=== PATIENT | female | born 1975 | race Caucasian/White ===

== ENCOUNTER → 2023-11-03 | Outpatient (CLI) | payer BC, SELFPAY | END | disposition home or self-care (01) | PROVIDERS: PCP Family Medicine; Visit Provider Physician Assistant Surgical | DX: N39.0 Urinary tract infection, site not specified (principal) | CPT/HCPCS: 87086; 87088; 87186 ==

== ENCOUNTER 2024-03-30 02:23 | Emergency (ER) | payer BC, SELFPAY ==
[2024-03-30 02:24] VITALS: BP 189/90; PULSE 145; RESP 31; TEMP 36.6; O2SAT 95; BMI 29.4
--- NOTE | 2024-03-30 02:27 | EX.ED.DYSGE1 ---
HPI History of Present Illness Chief Complaint: Palpitations PFSH PFS Medical History no medical history Home Medications ?Medication ?Instructions ?Recorded ?Last Taken ?Type atenolol 25 mg tablet 25 mg PO DAILY 30 days #30 tabs 03/30/24 Unknown Rx cetirizine 10 mg tablet (24Hour 10 mg PO DAILY PRN allergy symptoms 03/30/24 Unknown History Allergy) Allergy/AdvReac Type Severity Reaction Status Date / Time naproxen Allergy Swelling Verified 03/30/24 02:27 EXAM Physical Exam Const Vital Signs: 03/30/24 02:24 03/30/24 02:29 03/30/24 03:12 Temperature 98 F Temperature Source Oral Pulse Rate 145 H 116 H Respiratory Rate 31 H 20 H Respiratory Effort Normal Blood Pressure 189/90 H 134/67 H Blood Pressure Mean 123 89 Pulse Ox 95 98 Oxygen Delivery Method Nasal Cannula Room Air 03/30/24 04:00 03/30/24 05:00 Temperature Temperature Source Pulse Rate 119 H 96 Respiratory Rate 21 H 24 H Respiratory Effort Blood Pressure 143/82 H 134/81 H Blood Pressure Mean 102 98 Pulse Ox 99 98 Oxygen Delivery Method Room Air Room Air MDM MDM MDM Narrative Medical decision making narrative: HISTORY OF PRESENT ILLNESS: 48-year-old female presents with palpitations. Patient notes elevated heart rate since yesterday evening. She notes elevated heart rate woke her up at 2 AM. She also planes of diaphoresis and sweating. Denies vomiting or diarrhea. Denies decreased p.o. intake. Denies cough fever chills. Denies history of thyroid abnormalities. Denies drug use. The patient denies recent surgery in the last 4 weeks or immobilization in the last 3 days, denies previous diagnosis of DVT or PE, hemoptysis, unilateral leg swelling or malignancy with treatment the last 6 months or palliative. No estrogen use noted. Denies personal family history of abnormal heart rhythms. REVIEW OF SYSTEMS: Pertinent positives: Palpitations Pertinent negatives: Chest pain, shortness of breath, vomiting, diarrhea, abdominal pain, decreased p.o. intake PHYSICAL EXAM: Nursing triage notes reviewed, Vital signs reviewed Constitutional: please see mdm HENT: MMM Eyes: Pupils equal round and reactive to light, Extraocular muscles intact Neck: No stridor, no JVD, full neck ROM Lungs: Clear to auscultation, No wheezing or rales. No increased work of breathing, no conversational dyspnea, no accessory muscle use, no nasal flaring. No respiratory distress noted Heart: Regular rate and rhythm, No murmurs, No rubs and No gallops, 2+ distal pulses (radial, femoral, posterior tibial) in all extremities Abdomen: Soft, there is no tenderness, rigidity, rebound or guarding, no obvious peritoneal signs, no palpable pulsatile abdominal masses, no auscultated abdominal bruit : No CVAT Extremities: No edema Neuro: No new focal neurological deficits, cranial nerves II through XII intact, 5/5 strength in all present extremities. Intact sensation to light touch in all present extremities, 2+ reflexes bilateral patella tendons. Skin: No rash or lesions noted MEDICAL DECISION MAKING: Chief Complaint: Palpitations External records reviewed: Reviewed prior cardiovascular testing Factors affecting care: dermatitis, UTI Social determinants of health: Denies cocaine, methamphetamine or illicit drugs History obtained from others: Consults: none MDM Narrative: The patient was initially hypertensive with a blood pressure 189/90, tachycardic with a heart rate of 145, tachypneic with a respiratory to 31 saturating 95% on room air. No acute distress. Exam without focal pulse deficits, lungs were clear. No stigmata of VTE on initial exam. I considered the following differential diagnosis: Arrhythmia, anemia, electro disturbance, ACS, PE, dehydration, thyroid dysfunction, anxiety I obtained a broad lab and imaging workup to further elucidate the etiology of the patient's complaints. Will treat the patient initially with 500 cc bolus ALL IMAGES (IF OBTAINED) HAVE BEEN PERSONALLY REVIEWED AND INTERPRETED BY MYSELF. EKG with sinus tachycardia rate of 139, left axis deviation, normal intervals, no obvious STEMI CBC without leukocytosis, severe anemia, no thrombocytopenia. D-dimer negative making PE less likely Thyroid studies consistent with hyperthyroidism with low TSH and elevated T3 and T4 I have personally reviewed the patient's chest x-ray. Chest x-ray is unremarkable for pulmonary edema, pneumothorax, pneumonia or focal cardiopulmonary abnormality. High-sensitivity troponin is negative, no evidence of myocardial ischemia x2 On reevaluation the patient's blood pressure. 134/81 and heart rate improved at 96. She felt completely asymptomatic. Given signs of hyperthyroidism will start empiric treatment with atenolol 25 mg orally. This improve the patient's heart rate to a normal range. She felt asymptomatic. Prescribed atenolol and gave PCP follow-up instructions for further thyroid studies. The patient and/or family, caregivers express understanding. The patient and/or family, caregivers agrees with the plan. Shared decision making: I will have a discussion with the patient and or visitors regarding risk/benefits of further testing or admission. They will be made aware of of the risk/benefits inherent in this decision they will be given the opportunity to voice understanding. Total critical care time today provided was at least 0 minutes. This excludes separately billable procedures. Critical care time (if documented) is secondary to the patient having high probability of clinically significant/life threatening deterioration in the patient's condition which required my urgent intervention. Impression: 1. Palpitations 2. Elevated blood pressure 3. Tachycardia 4. Hyperthyroidism Dispo: Discharge home This note was generated with [employer] dictation software. It may contain incorrect words, spelling, and punctuation that were not noted in review of the chart prior to signing. Lab Data Labs: Laboratory Results - last 24 hr 03/30/24 03/30/24 02:47 05:18 WBC 8.6 RBC 4.55 Hgb 13.5 Hct 40.7 MCV 89.5 MCH 29.7 MCHC 33.2 RDW Std Deviation 39.1 RDW Coeff of Cinthya 12.0 Plt Count 389 MPV 8.4 D-Dimer Quant (PE/DVT) 0.29 Sodium 138 Potassium 3.9 Chloride 105 Carbon Dioxide 24.0 Anion Gap 9 BUN 14 Creatinine 0.60 Estim Creat Clear Calc 111.51 Est GFR (MDRD) Af Amer 136 Est GFR (MDRD) Non-Af 112 BUN/Creatinine Ratio 23.1 H Glucose 120 H Calcium 9.2 Troponin I High Sens 5 6 TSH < 0.005 L Free T4 2.26 H Free T3 pg/dL 8.1 H Radiography Diagnostic Testing: Clinical Impression(s) from Imaging Studies Chest X-Ray 03/30/24 02:55 IMPRESSION: Chest with no acute disease. Electronically Signed: Pedrito Lloyd MD at 5:09 EST , Discharge Plan Triage Chief Complaint: Palpitations ED Provider: Bijan De La Paz Dx/Rx/DC Orders Instructions: ED Hyperthyroidism Prescriptions: New atenolol 25 mg tablet 25 mg PO DAILY 30 Days Qty: 30 0RF No Action cetirizine [24Hour Allergy] 10 mg tablet 10 mg PO DAILY PRN (Reason: allergy symptoms) Primary Care Provider: Tammy Hernández Referrals: Tammy Hernández MD [Primary Care Provider] - Activity Restrictions/Additional Instructions: Thank you for trusting us with your care today! Your labs and images were remarkable for evidence of an overactive thyroid. This is called hyperthyroidism. I have prescribed a medicine to help with symptoms. You take this medicine daily. Please return to the emergency department if your symptoms change or worsen. Please follow with your primary care physician for further outpatient evaluation and management and evaluation of your thyroid. Print Language: Citizen Of [place] Disposition Disposition: Home, Self Care
--- NOTE | 2024-03-30 02:33 | EKG12_ITS ---
Test Reason : PALPS Blood Pressure : */* mmHG Vent. Rate : 139 BPM Atrial Rate : 139 BPM P-R Int : 138 ms QRS Dur : 82 ms QT Int : 292 ms P-R-T Axes : 60 -3 41 degrees QTcB Int : 444 ms Sinus tachycardia Nonspecific ST and T wave abnormality Abnormal ECG Confirmed by Valente Dangelo ([id number]), department editor SHANE GARNER ([id number]) on 04/01/2024 11:33:50 AM Referred By: ODALIS Confirmed By: Valente Dangelo
[2024-03-30] MEDS: 0.9% Normal Saline (500mL Bag) 500 ML 999 ML IV ×2 (02:52→03:49)
--- NOTE | 2024-03-30 02:55 | RAD_ITS ---
INDICATION: Tachycardia EXAMINATION/TECHNIQUE: X-RAY - XR Chest 1 View COMPARISON: None. Findings: Single frontal view of the chest. LUNG PARENCHYMA: No acute focal airspace disease or mass lesion. PLEURA: No pleural effusion. No pneumothorax. HEART/GREAT VESSELS: Cardiomediastinal silhouette is unremarkable. BONES: Osseous structures are unremarkable for age. RAD/Chest 1 View (Portable) IMPRESSION: Chest with no acute disease. Electronically Signed: Pedrito Lloyd MD at 5:09 EST ,
[2024-03-30 03:06] LABS: Hematocrit 40.7 % (37-47); Hemoglobin 13.5 g/dL (12.0-15.0); Mean Corp Hgb Conc 33.2 g/dL (32-36); Mean Corpuscular Hgb 29.7 pg (27.0-32.0); Mean Corpuscular Volume 89.5 fL (81-99); Mean Platelet Vol. 8.4 fl (6.2-12.0); Platelet Count 389 K/mm3 (150-450); RBC Distribution Width SD 39.1 fl (35.1-43.9); Red Blood Count 4.55 M/mm3 (4.2-5.4); White Blood Count 8.6 K/mm3 (4.4-11.0)
[2024-03-30 03:12] VITALS: BP 134/67; PULSE 116; RESP 20; O2SAT 98
[2024-03-30 03:12] LABS: D-Dimer Quantitative (DVT/PE) 0.29 FEU/ug/m (0.27-0.49)
[2024-03-30 03:40] LABS: Anion Gap 9 (5-15); BUN 14 mg/dL (7-18); BUN/Creat Ratio 23.1 RATIO (10-20); Calcium,Total 9.2 mg/dL (8.5-10.1); Chloride 105 mmol/L (98-107); EST Glomerular Filtration Rate 112 mL/min (>60); Est Glom Filt Rate - Afr Amer 136 mL/min (>60); Estimated Creatinine Clearance 111.51 ml/min; Free T3 8.1 pg/mL (2.18-3.98); Glucose 120 mg/dL (74-106); Potassium 3.9 mmol/L (3.5-5.1); Sodium Level 138 mmol/L (136-145); T4 Free Direct 2.26 ng/dL (0.76-1.46); Thyroid Stim Hormone (TSH) < 0.005 uIU/mL (0.358-3.740); Troponin-I HS (w/2H Reflex) 5 pg/mL (3.0-54.0)
[2024-03-30 04:00] VITALS: BP 143/82; PULSE 119; RESP 21; O2SAT 99
[2024-03-30] MEDS: Atenolol 25 MG Tablet PO (04:22)
[2024-03-30 04:59] LABS: Reflex Troponin-HS? (from REC) Y
[2024-03-30 05:00] VITALS: BP 134/81; PULSE 96; RESP 24; O2SAT 98
[2024-03-30 05:43] LABS: Troponin-I HS 6 pg/mL (3.0-54.0)
[2024-03-30 05:51] VITALS: BP 130/52; PULSE 87; RESP 20; TEMP 36.6; O2SAT 99
== END 2024-03-30 05:52 | disposition home or self-care (01) ==
PROVIDERS: Emergency Provider Emergency Medicine; PCP Family Medicine; Visit Provider Emergency Medicine
DX: R00.2 Palpitations (principal); R03.0 Elevated blood-pressure reading, without diagnosis of hypertension; R00.0 Tachycardia, unspecified; E05.00 Thyrotoxicosis with diffuse goiter without thyrotoxic crisis or storm
CPT/HCPCS: 36415; 71045; 80048; 84439; 84443; 84481; 84484; 85027; 85379; 93005; 96360; 96361; 99284; A4216

== ENCOUNTER → 2024-04-09 | Outpatient (CLI) | payer BC, SELFPAY ==
--- NOTE | 2024-04-09 12:45 | US_ITS ---
STUDY: THYROID ULTRASOUND REASON FOR EXAM: Female, 48 years old. THYROID STORM TECHNIQUE: Ultrasound evaluation of the thyroid was performed with real-time and static jimenez-scale imaging. COMPARISON: None. FINDINGS: RIGHT LOBE: The right lobe of the thyroid gland measures 5.1 x 1.8 x 2.0 cm. There is a heterogeneous echotexture and hypervascular. There is a solid round heterogeneous nodule with calcification measuring 1.79 x 1.40 x 1.23 cm. LEFT LOBE: The left lobe of the thyroid gland measures 4.8 x 1.6 x 1.3 cm. There is a heterogeneous and hypervascular echotexture. There is a heterogeneous ovoid solid nodule in the caudal aspect of the left thyroid lobe measuring 1.13 x 0.64 x 0.92 cm. ISTHMUS: The isthmus measures 0.2 cm. . There is solid lymph node above the right thyroid lobe measuring 1.4 x 0.8 x 0.4 cm. US/Thyroid IMPRESSION: 1. Solid thyroid nodule in the right mid thyroid lobe measuring 1.79 x 1.40 x 1.23 cm. TI-RADS points: 8. TI-RADS category: TR5. This nodule is highly suspicious. Recommend FNA evaluation. 2. Solid heterogeneous nodule in the caudal aspect of the left thyroid lobe. TI-RADS points: 7. TI-RADS category: TR5. This nodule is highly suspicious. Recommend FNA evaluation. Electronically Signed: João Alfred MD at 16:13 EST ,
== END | disposition home or self-care (01) ==
PROVIDERS: PCP Family Medicine; Referring Provider Family Medicine; Visit Provider Family Medicine
DX: E05.91 Thyrotoxicosis, unspecified with thyrotoxic crisis or storm (principal)
CPT/HCPCS: 76536

== ENCOUNTER → 2024-04-16 | Outpatient (CLI) | payer BC, SELFPAY ==
--- NOTE | 2024-04-16 08:01 | NM_ITS ---
CLINICAL: 48-year-old female with history of clinical hyper-thyroidism and thyroid nodularity. I-123 THYROID UPTAKE and SCAN COMPARISON: Thyroid ultrasound report 04/09/2024 FINDINGS: The patient was administered a 324 uCi I-123 capsule by mouth. The 4-hour I-123 radioactive iodine thyroidal uptake was calculated to be 36.6 % (normal 5 to 25 %). The 24-hour I-123 radioactive iodine thyroidal uptake was calculated to be 64.1 % (normal 5 to 40 %). The I-123 thyroid scan demonstrates homogeneous radiopharmaceutical concentration throughout both lobes of a U -shaped thyroid gland. There are no colloidal parenchymal hypofunctioning-cold nodules noted in either lobe of the thyroid gland. NM/Thyroid Image Quant Measure IMPRESSION: 1. ABNORMAL, ELEVATED 4- and 24-hour I-123 radioactive iodine thyroidal uptakes. 2. The I-123 thyroid scan in conjunction with the calculated iodine uptake values is consistent with the presence of diffuse toxic goiter. 3. If not previously obtained correlation with in-vitro thyroid function studies is recommended. Electronically Signed: Joseluis Garcia DO at 12:42 EST ,
== END | disposition home or self-care (01) ==
LOC: NM 08:00
PROVIDERS: PCP Family Medicine; Referring Provider Family Medicine; Visit Provider Family Medicine
DX: E05.91 Thyrotoxicosis, unspecified with thyrotoxic crisis or storm (principal)
CPT/HCPCS: 78014; A9516

== ENCOUNTER → 2024-05-09 | Outpatient (CLI) | payer BC, SELFPAY ==
[2024-05-09 13:08] LABS: Free T3 5.7 pg/mL (2.18-3.98); T4 Free Direct 1.71 ng/dL (0.76-1.46); Thyroid Stim Hormone (TSH) < 0.005 uIU/mL (0.358-3.740)
[2024-05-10 08:10] LABS: Thyroid Peroxidase AB 10 IU/mL (0-34)
== END | disposition home or self-care (01) ==
LOC: BIMLAB 10:00
PROVIDERS: Internal Medicine Endocrinology, Diabetes & Metabolism; PCP Family Medicine; Referring Provider Family Medicine; Visit Provider Family Medicine
DX: E05.00 Thyrotoxicosis with diffuse goiter without thyrotoxic crisis or storm (principal)
CPT/HCPCS: 36415; 84439; 84443; 84481; 86376

== ENCOUNTER → 2024-05-30 | Outpatient (CLI) | payer BC, SELFPAY ==
[2024-05-30 12:53] LABS: Free T3 3.3 pg/mL (2.18-3.98); T4 Free Direct 1.05 ng/dL (0.76-1.46); Thyroid Stim Hormone (TSH) < 0.005 uIU/mL (0.358-3.740)
== END | disposition home or self-care (01) ==
LOC: BIMLAB 09:15
PROVIDERS: PCP Family Medicine; Referring Provider Internal Medicine Endocrinology, Diabetes & Metabolism; Visit Provider Internal Medicine Endocrinology, Diabetes & Metabolism
DX: E05.00 Thyrotoxicosis with diffuse goiter without thyrotoxic crisis or storm (principal)
CPT/HCPCS: 36415; 84439; 84443; 84481

== ENCOUNTER → 2024-07-09 | Outpatient (CLI) | payer BC, SELFPAY ==
[2024-07-09 13:32] LABS: Free T3 2.6 pg/mL (2.18-3.98)
== END | disposition home or self-care (01) ==
LOC: BIMLAB 09:26
PROVIDERS: PCP Family Medicine; Visit Provider Internal Medicine Endocrinology, Diabetes & Metabolism
DX: E05.00 Thyrotoxicosis with diffuse goiter without thyrotoxic crisis or storm (principal)
CPT/HCPCS: 36415; 84439; 84443; 84481

== ENCOUNTER → 2024-08-22 | Outpatient (CLI) | payer BC, SELFPAY ==
[2024-08-22 13:36] LABS: Free T3 3.2 pg/mL (2.18-3.98)
== END | disposition home or self-care (01) ==
LOC: BIMLAB 09:59
PROVIDERS: PCP Family Medicine; Referring Provider Internal Medicine Endocrinology, Diabetes & Metabolism; Visit Provider Internal Medicine Endocrinology, Diabetes & Metabolism
DX: E05.00 Thyrotoxicosis with diffuse goiter without thyrotoxic crisis or storm (principal)
CPT/HCPCS: 36415; 84439; 84443; 84481

== ENCOUNTER → 2024-10-17 | Outpatient (CLI) | payer BC, SELFPAY ==
--- OUTSIDE RECORDS SUMMARY | 2024-10-17 10:27 | XMS RPT_ITS | CCD ---
Author Organization [facility]ini[facility] Care Team Providers Care Envelope Machine Adjuster Name Role Phone EDGAR DE DIOS, DR MONAE Primary Care Physician EDGAR DE DIOS, DR MONAE Primary Care Unavailable BRITTNI DE DIOS, STEVIE Attending Unavailable BRITTNI DE DIOS, STEVIE Attending Unavailable EDGAR DE DIOS, DR MONAE Primary Care Unavailable Edgar DE DIOS, Dr. Tammy Paul Primary Care Provider [phone] Dr. Bijan De La Paz DO Attending Provider Dr. Bijan De La Paz DO Emergency Provider Dr. Tammy Mejia MD Attending Provider Dr. Tammy Mejia MD Referring Provider Dr. Cesar Moss MD Attending Provider [place], Dr. Guerrero Referring Provider Cesar Moss Attending Unavailable Jolliff, Tammy S Primary Care Unavailable Jolliff, Tammy S Referring Unavailable Ajay, Cesar Attending Unavailable Jolliff, Tammy S Primary Care Unavailable Ajay, Cesar Referring Unavailable AjayCesar Attending Unavailable Jolliff, Tammy S Primary Care Unavailable Bijan De La Paz Attending Unavailable Jolliff, Tammy S Primary Care Unavailable Marcelino Mendes Attending Unavailable Jolliff, Tammy S Primary Care Unavailable Jolliff, Tammy S Primary Care Unavailable Jolliff, Tammy S Referring Unavailable Jolliff, Tammy S Attending Unavailable Jolliff, Tammy S Primary Care Unavailable Jolliff, Tammy S Referring Unavailable Jolliff, Tammy S Attending Unavailable Jolliff, Tammy S Primary Care Unavailable Jolliff, Tammy S Referring Unavailable Jolliff, Tammy S Attending Unavailable Ajay, Cesar Referring Unavailable Ajay, Cesar Attending Unavailable Jolliff, Tammy S Primary Care Unavailable Marcelino Mendes Attending Unavailable Jolliff, Tammy S Referring Unavailable Tammy Mejia Primary Care Unavailable Cesar Moss Attending Unavailable Tammy Mejia Primary Care Unavailable Tammy Mejia Referring Unavailable MABEL HALL Attending Unavailable EDGAR DE DIOS, DR MONAE Primary Care Unavailable EDGAR DE DIOS, DR MONAE Primary Care Unavailable STEVIE ELKINS MD Attending Unavailable Allergies Allergy Classification Reported Allergen(s) Allergy Type Date of Onset Reaction(s) Facility (5 sources) Naproxen; Translations: [naproxen] Drug Allergy 5 facial swelling, hives, Swelling [facility] Comment on above: facial swelling, hiv es (1 source) Naproxen Drug Allergy 5 [facility] Repository Medications Current Medications Medication Drug Class(es) Dates Sig (Normalized) Sig (Original) Zyrtec (3 sources) Histamine-1 Receptor Antagonist Start: 09-04-2024 ZyrTEC qDay, 0 Refill(s) Start Date: 09/04/24 Status: Ordered Repeat number: 1 Start: 03-30-2024 take 1 tablet by lotus th once daily as needed Cetirizine (24hour Allergy) 10 mg tablet Active 10 mg PO DAILY as needed for allergy symptoms March 30, 2024 1:00am Claritin (2 sources) Start: 08-08-2023 Claritin qDay, 0 Refill(s) Start Date: 08/08/23 Status: Ordered methIMAzole 10 mg oral tablet (4 sources) Thyroid Hormone Synthesis Inhibitor Start: 08-13-2024 methIMAzole 10 mg or al tablet Dose : 10 mg = 1 tab(s), TAKE 1 TABLET BY MOUTH ONCE DAILY Start Date: 08/13/24 Status: Ordered Repeat number: 1 Start: 07-11-2024 Methimazole 10 mg tablet Active 15 mg PO daily 135 July 11, 2024 10:12am Start: 04-19-2024 End: 07-11-2024 take 2 tablets by mouth once daily Methimazole 10 mg tablet Discontinued 20 mg PO daily 60 April 19, 2024 1:00am July 11, 2024 10:12am Multivitamin preparation (4 sources) Start: 08-08-2023 take 1 tablet by mouth once daily Multivitamin Dose = 1 tab(s), Oral, Daily, 0 Refill(s) Start Date: 08/08/23 Status: Ordered Repeat number: 1 Start: 08-08-2023 take 1 tablet by lotus th once daily Multivitamin Dose = 1 tab(s), Oral, Daily, 0 Refill(s) Start Date: 08/08/23 Status: Ordered PEG-3350 with Electrolytes (Eqv-GoLYTELY) oral powder for reconstitution (2 sources) Start: 09-04-2024 PEG-3350 with Electrolytes (Eqv-GoLYTELY) oral powder for reconstitution See Instructions, Take as directed starting 1 day before colonoscopy. Follow instructions as provided by your GI provider at [place]., # 1 EA, 0 Refill(s), Pharmacy: [id number], 160, cm, 09/04/24 15:02:00 EDT, Height, kg, 09/04/24 15:02:00 EDT, Dosing Weight Start Date: 09/04/24 Status: Ordered Quantity: 1.0 Unit: EA Repeat number: 1 Completed/Discontinued Medications Medication Drug Class(es) Dates Sig (Normalized) Sig (Original) atenolol 25 mg oral tablet (2 sources) beta-Adrenergic Juanito Start: 03-30-2024 End: 07-11-2024 take 1 tablet by mouth once daily Atenolol 25 mg tablet Discontinued 25 mg PO DAILY April 19, 2024 3:16pm July 11, 2024 9:53am nitrofurantoin, macrocrystals 25 mg / nitrofurantoin, monohydrate 75 mg oral capsule (1 source) Nitrofuran Antibacterial Start: 11-03-2023 End: 11-10-2023 take 1 capsule by mouth every twelve hours at mealtime Nitrofurantoin Monohyd/M-Cryst 100 mg capsule Discontinued 1 NMA PO Q12H 14 November 03, 2023 12:00am November 09, 2023 12:00am November 10, 2023 12:06am administer with a meal/food; swallow whole; do not open, crush, dissolve , or chew predniSONE 10 mg oral tablet (1 source) Start: 05-07-2022 End: 05-22-2022 Prednisone 10 mg tablet Discontinued 10 mg PO .COMPLEX 35 15 May 07, 2022 1:00am May 21, 2022 1:00am May 22, 2022 1:04am 10 mg orally; 40mg x5 days, 20mg x5 days, 10mg x5 days Problems Active Problems Problem Classification Problem Date Documented Date Episodic/Chronic Allergic reactions (1 source) Acute dermatitis; Translations: [Dermatitis, unspecified] 05-07-2022 Episodic Essential hypertension (2 sources) Essential (primary) hypertension; Translations: [Essential (primary) hypertension] Onset: 08-08-2023 Chronic Other nutritional; endocrine; and metabolic disorders (2 sources) Body mass index (BMI) 31.0-31.9, adult; Translations: [Body mass index [BMI] 31.0-31.9, adult] Onset: 08-08-2023 Chronic Other screening for suspected conditions (not mental disorders or infectious disease) (5 sources) Encounter for screening mammogram for malignant neoplasm of breast; Translations: [Encounter for other screening for malignant neoplasm of breast] Onset: 08-08-2023 Episodic Thyroid disorders (5 sources) Thyrotoxicosis due to Graves' disease; Translations: [Thyrotoxicosis with diffuse goiter without thyrotoxic crisis or storm] Onset: 05-17-2024 07-11-2024 Chronic Past or Other Problems Problem Classification Problem Date Documented Da te Episodic/Chronic Cardiac dysrhythmias (1 source) Palpitations; Translations: [Palpitations] Onset: 05-06-2024 Episodic Genitourinary symptoms and ill-defined conditions (1 source) Dysuria; Translations: [Dysuria] Onset: 11-03-2023 Episodic Urinary tract infections (1 source) Urinary tract infection, site not specified; Translations: [Urinary tract infection, site not specified] Onset: 11-15-2023 Episodic Results Test Name Value Interpretation Reference Range Facility MA MAMMOGRAM SCREENING BILAT ERAL W/TOMOon 09-10-2024 MA MAMMOGRAM SCREENING BILATERAL W/JERAMY ORIGINAL FROM: [facility] [address] [place], [place] [address] PROCEDURE FOR: JAVAD OLEARY [address] [place] [address] Home: PID#: [id number] Exam#: [id number] : 1975 Age: 48 TO: STEVIE ELKINS MD [address] [facility] [address] [place], [place] [address] Fax: NO FAX EXAMINATION: SCREENING DIGITAL BILATERAL MAMMOGRAM WITH TOMOSYNTHESIS, 09/05/2024 7:19 am TECHNIQUE: Screening mammography of the bilateral breasts was performed with tomosynthesis. 2D standard and 3D tomosynthesis combination imaging performed through both breasts in the MLO and CC projection. Computer aided detection was utilized in the interpretation of this exam. COMPARISON: August 22, 2023, January 29, 2018 HISTORY: Breast cancer screening. FINDINGS: BREAST DENSITY: The breasts are heterogeneously dense, which may obscure small masses. There is no suspicious mass, architectural distortion or microcalcification. Fibroglandular pattern is stable. IMPRESSION: No mammographic evidence of malignancy. Continued screening with annual mammograms is recommended. Rashmi zick risk calculations, generated with the history provided, report this patient's 10 year risk and lifetime risk for developing breast cancer at 2.6% and 12%, respectively. Based on this assessment tool, if the patient's calculated lifetime risk is below 20%, then the patient is considered at average risk for developing breast cancer. If the patient's calculated lifetime risk is at or above 20%, then the patient is considered high risk for developing breast cancer and may be a candidate for supplemental breast MRI screening in addition to annual mammographic screening per the [employer]. BIRADS: MAMMOGRAM BI-RADS: 1: Negative RECALL: 1 year screening RECALL TYPE: mammo LETTER SENT: Normal BI-RADS 1 and 2 Interpreted by: Stacia Berry Preliminary Report By: Stacia Berry Electronically signed By Stacia Berry Dictated Date: 09/10/2024 10:39:49 PM Prelim Date: 09/10/2024 10:43:07 PM Sign Date: 09/10/2024 10:43:07 PM Ordering Provider: STEVIE ELKINS Dry Cleaner Apprentice: KODI BLACKWOOD RT(Delia)(M)(CT) letter sent: Normal BI-RADS 1 and 2 Mammogram BI-RADS: 1 Negative Normal [facility] Free T3on 08-22-2024 Free T3 [Mass/Vol] 3.2 pg/mL Normal 2.18-3.98 [facility] Comment on above: Performed By: #### L [id number], [id number], L506.0400 ####[facility] [address] [place], [address] T4 Free Directon 08-22-2024 T4 FREE DIRECT 0.80 ng/dL Normal 0.76-1.46 [facility] Comment on above: Performed By: #### L [id number], [id number], L506.0400 ####[facility] [id number] [place], [address] Thyroid Stim Hormone (TSH)on 08-22-2024 TSH 5.360 uIU/mL High 0.300-4.200 [facility] Comment on above: Performed By: #### L [id number], [id number], L506.0400 ####[facility] [address] [place], [address] Endocrinology Visit Reporton 07-11-2024 Endocrinology Visit Report [facility] [address] [facility] [place], [place] [address] OFFICE VISIT Date of Service: 07/11/24 MR#: [id number] Acct: [id number] Name: JAVAD OLEARY Rep #: [id number] : 1975 Provider: Bob Mcgregor Age/Sex: 48/F Location[place] [facility] [place] Status: Signed Intake Vital Signs 04/19/24 13:23 07/11/24 09:51 Height 5 ft 3 in 5 ft 3 in Weight: 174 lb 185 lb BMI 30.8 32.8 BP 144/66 H 125/83 H Blood Pressure Location Lt brachial Rt brachial Position Sitting Sitting Pulse 116 H 78 Pulse Source Monitor Monitor Pulse Oximetry (%) 97 96 Oxygen Delivery Method room air room air Intake Visit Reasons: 3 M FU Chief Complaint: Thyroid Allergies naproxen Allergy (Verified 07/11/24 09:52) Swelling Medications ???Medication ???Instructions ???Recorded ???Confirmed ???Type cetirizine 10 mg tablet (24Hour 10 mg PO DAILY PRN allergy symptom s 03/30/24 07/11/24 History Allergy) methimazole 10 mg tablet 15 mg (1.5 x 10 mg) PO QDAY #135 0 07/11/24 07/11/24 Rx tabs PFSH Medical History Thyrotoxicosis due to Graves' disease Seasonal allergies Surgical History History of delivery History of cholecystectomy Family History Mother History of mitral valve repair Grandmother Arthritis Social History Smoking Status: Never smoker second hand exposure: No alcohol intake: current alcohol intake frequency: a few times a month substance use type: does not use what type of physical activity do you participate in: walking frequency: 3-4 times per week duration: > 90 minutes/day HPI HPI Chief Complaint: Thyroid Details: JAVAD OLEARY, is a 48 F who presents to the office today for follow up. She was diagnosed with thyrotoxicosis due to Grave's disease in March. She is now feeling well. She is taking 15 mg of methimazole, she is tolerating it well. She stopped her beta juanito and heart rate is controlled. ROS Const Constitutional: No fatigue, weight change or change in appetite Eyes Eyes: No change in vision ENT ENT: No dizziness/vertigo or difficulty swallowing Cardio Cardiology: No chest pain at rest, chest pain with exertion, shortness of breath or palpitations Musc Musculoskeletal: No abnormal gait, joint pain, numbness or tingling Neuro Neurology: No abnormal gait, memory loss, numbness or tingling Psych Psychiatric: No change in appetite, No memory loss and No Thoughts of harming yourself/Others Resp Respiratory: No cough, chest congestion or shortness of breath Gastro GI: No abdominal pain, constipation, diarrhea or difficulty swallowing Genitourinary-Female: No burning urination Skin Skin: No itchy eyes or wounds Endo Endocrine: No fatigue or weight change Aller/Imm Allergy/Immunologic: No itchy eyes Exam Const General: cooperative, healthy appearing, comfortable, no acute distress, well developed and not cushingoid Nutritional Appearance: well nourished Orientation: alert, awake and oriented x3 HENMT Head: normal to inspection Ears: hearing grossly normal bilaterally Nose: external nose normal Mouth: oral mucosae normal Eyes General: appearance normal, both eyes and all related structures Alignment and Position: alignment normal Periorbital: periorbital findings normal Eyelids: eyelids normal Conjunctivae: conjunctivae normal Neck Neck: normal visual inspection Neck mass: No Thyroid: diffusely enlarged Lymphatic: no lymphadenopathy noted Chest Chest palpation inspection: normal inspection of the chest Resp Effort Inspection: normal respiratory effort, able to speak in complete sentences, symmetric chest movement, no audible wheezes and no cough Auscultation: Bilateral: Clear to Auscultation Cardio Rate: regular rate Rhythm: regular rhythm Skin General: no rashes or lesions noted Neuro General: patient alert, patient awake and patient oriented x3 Cranial Nerves: CN's II-XI intact bilaterally Cognition: normal cognition Speech: speech normal Gait: normal gait Motor: muscle tone normal throughout Extrem General: no edema Psych Appearance: grossly normal Mental Status: mental status grossly normal Mood: congruent mood Affect: normal affect Speech and Movement: speech and movement normal Attitude: cooperative Thought Process: normal Thought Content: normal Judgment: judgment good Assessment and Plan Assessment and Plan (1) Thyrotoxicosis due to Graves' disease: Status: Chronic Plan: Reduce methimazole to 15 mg due to TSH of 4 Discussed alternative therapies (more content not included)... Normal [facility] Free T3on 07-09-2024 Free T3 [Mass/Vol] 2.6 pg/mL Normal 2.18-3.98 [facility] Comment on above: Performed By: #### L [id number], L506.0400, L501.88782 ####[facility] [address] [place], [place], [id number] Free [id number] By: Cesar Moss on 07-09-2024 Free Triiodothyronine (T3) pg/dL 2.6 pg/mL 2.18-3.98 [facility] T4 Free Directon 07-09-2024 T4 FREE DIRECT 0.60 ng/dL Low 0.76-1.46 [facility] Comment on above: Performed By: #### L [id number], L506.0400, L501.13893 ####[facility] [address] [place], [place], [id number] T4 freeOrdered By: Cesar Moss on 07-09-2024 Free T4 [Mass/Vol] 0.60 ng/dL Low 0.76-1.46 [facility] TSH DL <= 0.005 mIU/L QnOrde red By: Cesar Moss on 07-09-2024 Thyroid Stimulating Hormone (TSH) 4.290 uIU/mL High 0.300-4.200 [facility] Thyroid Stim Hormone (TSH)on 07-09-2024 TSH 4.290 uIU/mL High 0.300-4.200 [facility] Comment on above: Performed By: #### L [id number], L506.0400, L501.31204 ####[facility] [address] [place], [place], [id number] Direct serum free thyroxine (FT4) measurementOrdered By: Cesar Moss on 05-30-2024 Free T4 [Mass/Vol] 1.05 ng/dL 0.76-1.46 [facility] Free T3on 05-30-2024 Free T3 [Mass/Vol] 3.3 pg/mL Normal 2.18-3.98 [facility] Comment on above: Performed By: #### L [id number], L506.0400, L501.9520 ####[facility] [address] [place], [place], [id number] Free [id number] By: Cesar Moss on 05-30-2024 Free Triiodothyronine (T3) pg/dL 3.3 pg/mL 2.18-3.98 [facility] T4 Free Directon 05-30-2024 T4 FREE DIRECT 1.05 ng/dL Normal 0.76-1.46 [facility] Comment on above: Performed By: #### L 501.90916, L506.0400, L501.9520 ####[facility] [address] [place], [place], [address] TSH QnOrdered By: Cesar Moss on 05-30-2024 Thyroid Stimulating Hormone (TSH) < 0.005 uIU/mL Low 0.358-3.740 [facility] Thyroid Stim Hormone (TSH)on 05-30-2024 TSH Qn m[IU]/L Low 0.358-3.740 [facility] Comment on above: Performed By: #### L 501.64609, L506.0400, L501.4220 ####[facility] [address] [place], [place], [id number] Thyroid Peroxidase ABon 05-01 THYR PEROX AB 10 IU/mL Normal 0-34 [facility] Comment on above: Result Comment: Perf ormed at: [facility] [address] [id number] Turbine Assembler: Shaka Sullivan PhD, Phone: [phone] Performed By: #### L 506.0400, L598.48142, L525.9520, L3754.3461 ####[facility] [address] [facility] [place], [place], [id number] Direct serum free thyroxine (FT4) measurementOrdered By: Cesar Moss on 05-09-2024 Free T4 [Mass/Vol] 1.71 ng/dL High 0.76-1.46 [facility] Free T3on 05-09-2024 Free T3 [Mass/Vol] 5.7 pg/mL High 2.18-3.98 [facility] Comment on above: Performed By: #### L 506.0400, L501.63691, [id number], L3389.6561 ####[facility] [address] [place], [place], [id number] Free [id number] By: Cesar Moss on 05-09-2024 Free Triiodothyronine (T3) pg/dL 5.7 pg/mL High 2.18-3.98 [facility] T4 Free Directon 05-09-2024 T4 FREE DIRECT 1.71 ng/dL High 0.76-1.46 [facility] Comment on above: Performed By: #### L 506.0400, L501.21242, L501.9520, L3300.2240 ####[facility] [address] [place], [place], [address] TPO Ab QnOrdered By: Cesar valencia on 05-09-2024 Thyroid Peroxidase Antibodies 10 IU/mL 0-34 [facility] Comment on above: Performed at: [facility] [address] [place] [id number] Director: Shaka Sullivan PhD, Phone: [phone] TSH QnOrdered By: Cesar Moss on 05-09-2024 Thyroid Stimulating Hormone (TSH) < 0.005 uIU/mL Low 0.358-3.740 [facility] Thyroid Stim Hormone (TSH)on 05-09-2024 TSH Qn m[IU]/L Low 0.358-3.740 [facility] Comment on above: Performed By: #### L 506.0400, L501.50868, L501.9520, L3060.9029 ####[facility] [address] [place], [place], [address] Endocrinology Visit Reporton 04-19-2024 Endocrinology Visit Report [facility] [address] [facility] [place], [place] [address] OFFICE VISIT Date of Service: 04/19/24 MR#: [id number] Acct: [id number] Name: JAVAD OLEARY Rep #: [id number] : 1975 Provider: Bob Mcgregor Age/Sex: 48/F [place] [facility] Status: Signed Intake Vital Signs 03/30/24 02:24 04/19/24 13:23 Height 5 ft 3 in 5 ft 3 in Weight: 174 lb BMI 30.8 BP 144/66 H Blood Pressure Location Lt brachial Position Sitting Pulse 116 H Pulse Source Monitor Pulse Oximetry (%) 97 Oxygen Delivery Method room air Intake Visit Reasons: Hyperthyroid Chief Complaint: Thyroid Beck Operator Required: No Accompanied by: Self Is patient in pain?: No Allergies naproxen Allergy (Verified 04/19/24 13:22) Swelling Medications ???Medication ???Instructions ???Recorded ???Confirmed ???Type cetirizine 10 mg tablet (24Hour 10 mg PO DAILY PRN allergy symptoms 03/30/24 04/19/24 History Allergy) atenolol 25 mg tablet 25 mg PO DAILY 30 days #30 tabs 04/19/24 04/19/24 Rx methimazole 10 mg tablet 20 mg (2 x 10 mg) PO QDAY #60 tabs 04/19/24 04/19/24 Rx PFSH Medical History (Updated 04/19/24 @ 14:[address] Cesar Moss MD) Thyrotoxicosis due to Graves' disease Seasonal allergies Surgical History (Updated 04/19/24 @ 13:19 by Kathya Cortes) History of delivery History of cholecystectomy Family History (Updated 04/19/24 @ 13:22 by Kathya Cortes) Mother History of mitral valve repair Grandmother Arthritis Social History (Updated 04/19/24 @ 13:21 by Kathya Cortes) Smoking Status: Never smoker second hand exposure: No alcohol intake: current alcohol intake frequency: a few times a month substance use type: does not use what type of physical activity do you participate in: walking frequency: 3-4 times per week duration: > 90 minutes/day HPI HPI Chief Complaint: Thyroid Details: JAVAD OLEARY, is a 48 F who presents to the office today for follow up. She noticed heat intolerance about 2 months ago. She has been having racing heart and increased sweating. Lab: TSH < 0.005 T4 2.26 She was started on propranolol and is feeling a bit better. ROS Const Constitutional: Positive for excessive sweating; No fatigue, weakness or weight change Cardio Cardiology: Positive for excessive sweating and palpitations; No chest pain at rest, chest pain with exertion or shortness of breath Musc Musculoskeletal: No numbness Neuro Neurology: No weakness or numbness Skin Skin: No wounds Endo Endocrine: Positive for excessive sweating; No fatigue or weight change Exam Const General: cooperative, healthy appearing, comfortable, no acute distress, well developed and not cushingoid Nutritional Appearance: well nourished Orientation: alert, awake and oriented x3 [facility] Head: normal to inspection Ears: hearing grossly normal bilaterally Nose: external nose normal Mouth: oral mucosae normal Eyes General: appearance normal, both eyes and all related structures Alignment and Position: alignment normal Periorbital: periorbital findings normal Eyelids: eyelids normal Conjunctivae: conjunctivae normal Neck Neck: normal visual inspection Neck mass: No Thyroid: diffusely enlarged Lymphatic: no lymphadenopathy noted Chest Chest palpation inspection: normal inspection of the chest Resp Effort Inspection: normal respiratory effort, able to speak in complete sentences, symmetric chest movement, no audible wheezes and no cough Auscultation: Bilateral: Clear to Auscultation Cardio Rate: tachycardic Rhythm: regular rhythm Pulses: posterior tibial pulses present Skin General: no rashes or lesions noted Neuro General: patient alert, patient awake and patient oriented x3 Cranial Nerves: CN's II-XI intact bilaterally Cognition: normal cognition Speech: speech normal Gait: normal gait Motor: muscle tone normal throughout Extrem General: no edema Psych Appearance: grossly normal Mental Status: mental status grossly normal Mood: congruent mood Affect: normal affect Speech and Movement: speech and movement normal Attitude: cooperative Thought Process: normal Thought Content: normal Judgment: judgment good Assessment and Plan Assessment and Plan (1) Thyrotoxicosis due to Graves' disease: Status: Acute Plan: I counseled her regarding thyroid physiology and function. Discussed treatment options. Methimazole 20 mg for seven days then 10 mg. Recheck labs in 3 weeks. I discussed the possible adverse affects of anti-thyroid drugs including agranulocytosis, desquamating rash, and drug induced hepatitis. I asked the patient to call me immediately for fever, rash or dark colored urine. I gave the patient a written li (more content not included)... Normal [facility] Thyroid Image Quant Measureo n 04-16-2024 Thyroid Image Quant Measure [facility] Imaging Services [address] [place], [place] [address] Thyroid Image Quant Measure MR#: [id number] Acct: [id number] Name: JAVAD OLEARY Rep #: [id number] : 1975 F 48 From: Joseluis Neumann PCP: Dr. Tammy Mejia MD Status: REG CLI Study: Thyroid Image Quant Measure Date of Exam: Exam# [id number] Ordering Dr: Tammy Mejia MD [id number] CLINICAL: 48-year-old female with history of clinical hyper-thyroidism and thyroid nodularity. I-123 THYROID UPTAKE and SCAN COMPARISON: Thyroid ultrasound report 04/09/2024 FINDINGS: The patient was administered a 324 uCi I-123 capsule by mouth. The 4-hour I-123 radioactive iodine thyroidal uptake was calculated to be 36.6 % (normal 5 to 25 %). The 24-hour I-123 radioactive iodine thyroidal uptake was calculated to be 64.1 % (normal 5 to 40 %). The I-123 thyroid scan demonstrates homogeneous radiopharmaceutical concentration throughout both lobes of a U -shaped thyroid gland. There are no colloidal parenchymal hypofunctioning-cold nodules noted in either lobe of the thyroid gland. NM/Thyroid Image Quant Measure IMPRESSION: 1. ABNORMAL, ELEVATED 4- and 24-hour I-123 radioactive iodine thyroidal uptakes. 2. The I-123 thyroid scan in conjunction with the calculated iodine uptake values is consistent with the presence of diffuse toxic goiter. 3. If not previously obtained correlation with in-vitro thyroid function studies is recommended. Electronically Signed: Joseluis Garcia DO at 12:42 EST Reading Location ID and State: [address] [place] [address] Tel , Service support , CC: Dr. Tammy Mejia MD Billposting Supervisor: Signed Normal [facility] Thyroidon 04-09-2024 Thyroid [facility] Imaging Services [address] [place] [address] Thyroid MR#: [id number] Acct: [id number] Name: JAVAD OLEARY Rep #: [id number] : 1975 F 48 From: João Alfred MD PCP: Dr. Tammy Mejia MD Status: REG CLI Study: Thyroid Date of Exam: 04/09/24 Exam# [id number] Ordering Dr: Tammy Mejia MD [id number] STUDY: THYROID ULTRASOUND REASON FOR EXAM: Female, 48 years old. THYROID STORM TECHNIQUE: Ultrasound evaluation of the thyroid was performed with real-time and static jimenez-scale imaging. COMPARISON: None. FINDINGS: RIGHT LOBE: The right lobe of the thyroid gland measures 5.1 x 1.8 x 2.0 cm. There is a heterogeneous echotexture and hypervascular. There is a solid round heterogeneous nodule with calcification measuring 1.79 x 1.40 x 1.23 cm. LEFT LOBE: The left lobe of the thyroid gland measures 4.8 x 1.6 x 1.3 cm. There is a heterogeneous and hypervascular echotexture. There is a heterogeneous ovoid solid nodule in the caudal aspect of the left thyroid lobe measuring 1.13 x 0.64 x 0.92 cm. ISTHMUS: The isthmus measures 0.2 cm. . There is solid lymph node above the right thyroid lobe measuring 1.4 x 0.8 x 0.4 cm. US/Thyroid IMPRESSION: 1. Solid thyroid nodule in the right mid thyroid lobe measuring 1.79 x 1.40 x 1.23 cm. TI-RADS points: 8. TI-RADS category: TR5. This nodule is highly suspicious. Recommend FNA evaluation. 2. Solid heterogeneous nodule in the caudal aspect of the left thyroid lobe. TI-RADS points: 7. TI-RADS category: TR5. This nodule is highly suspicious. Recommend FNA evaluation. Electronically Signed: João Alfred MD at 16:13 EST , CC: Dr. Tammy Mejia MD Billposting Supervisor: Signed Normal [facility] 12 Lead EKGon 03-30-2024 12 Lead EKG [facility] Cardiovascular Services [address] [place] [address] 12 Lead EKG 03/30/24 0233 MR#: [id number] Acct: [id number] Name: JAVAD OLEARY Rep #: [id number] : 1975 48 From: Valente Dangelo MD Attending Dr: Status: DEP ER Ordering Dr: Bijan De La Paz DO Date: 03/30/24 Location: ED Sex: F C Admitted: Test Reason : PALPS Blood Pressure : */* mmHG Vent. Rate : 139 BPM Atrial Rate : 139 BPM P-R Int : 138 ms QRS Dur : 82 ms QT Int : 292 ms P-R-T Axes : 60 -3 41 degrees QTcB Int : 444 ms Sinus tachycardia Nonspecific ST and T wave abnormality Abnormal ECG Confirmed by Valente Dangelo ([id number]), fan mail editor SHANE GARNER ([id number]) on 04/01/2024 11:33:50 AM Referred By: ODALIS Confirmed By: Valente Dangelo 04/01/24 1133 Date Valente Dangelo MD CC: Dr. Tammy Mejia MD; Dr. Bijan De La Paz DO Signed Normal [facility] Basic Metabolic Profile (BMP )on 03-30-2024 BUN/CRE 23.1 RATIO High 10-20 [facility] Comment on above: Order Comment: 1 Y Performed By: #### L 501.02416, L501.9520, L501.5425, L300.8000, L100.0500, L500.2500, L506.0400 #### [facility] Laboratory [address], [place], [address] CA,Total 9.2 mg/dL Normal 8.5-10.1 [facility] Comment on above: Order Comment: 1 Y Performed By: #### L 501.94644, L501.9520, L501.5425, L300.8000, L100.0500, L500.2500, L506.0400 #### [facility] [address] [place], [address] Chloride [Moles/Vol] 105 mmol/L Normal 98-107 [facility] Comment on above: Order Comment: 1 Y Performed By: #### L 501.72864, L501.9520, L501.5425, L300.8000, L100.0500, L500.2500, L506.0400 #### [facility] [address] [place], [address] CO2 [Moles/Vol] 24.0 mmol/L Normal 21.0-32.0 [facility] Comment on above: Order Comment: 1 Y Performed By: #### L 501.66421, L501.9520, L501.5425, L300.8000, L100.0500, L500.2500, L506.0400 #### [facility] [address] [place], [address] Creatinine [Mass/Vol] 0.60 mg/dL Normal 0.55-1.02 [facility] Comment on above: Order Comment: 1 Y Result Comment: The validity of the calculated GFR GFRAA in patients over 70 years has not been determined. Clinical correlation is essential. Performed By: #### L 501.59806, L501.9520, L501.5425, L300.8000, L100.0500, L500.2500, L506.0400 #### [facility] [address] [place], [address] ECRCL 111.51 ml/min Normal [facility] Comment on above: Order Comment: 1 Y Performed By: #### L 501.93003, L501.9520, L501.5425, L300.8000, L100.0500, L500.2500, L506.0400 #### [facility] [address] [place], [address] EST GFR - AA 136 mL/min Normal >60 [facility] Comment on above: Order Comment: 1 Y Result Comment: Afri can Dominican GFR Calc Performed By: #### L 501.53400, L501.9520, L501.5425, L300.8000, L100.0500, L500.2500, L506.0400 #### [facility] [address] [place], [address] GAP 9 Normal 5-15 [facility] Comment on above: Order Comment: 1 Y Performed By: #### L 501.99852, L501.9520, L501.5425, L300.8000, L100.0500, L500.2500, L506.0400 #### [facility] [address] [place], [address] GFR/1.73 sq M.predicted among non-blacks MDRD (S/P/Bld) [Vol rate/Area] 112 mL/min/{1.73_m2} Normal >60 [facility] Comment on above: Order Comment: 1 Y Result Comment: Non- GFR Calc Performed By: #### L 501.45741, L501.9520, L501.5425, L300.8000, L100.0500, L500.2500, L506.0400 #### [facility] [address] [place], [address] Glucose [Mass/Vol] 120 mg/dL High 74-106 [facility] Comment on above: Order Comment: 1 Y Result Comment: Fast ing Glucose result from 100 to 125 mg/dL suggests IMPAIRED HOMEOSTASIS per A.D.A. criteria. Performed By: #### L 501.87635, L501.9520, L501.5425, L300.8000, L100.0500, L500.2500, L506.0400 #### [facility] [address] [place], [address] Potassium [Moles/Vol] 3.9 mmol/L Normal 3.5-5.1 [facility] Comment on above: Order Comment: 1 Y Result Comment: Mode rate Hemolysis, Result may be falsely increased. Performed By: #### L 501.56048, L501.9520, L501.5425, L300.8000, L100.0500, L500.2500, L506.0400 #### [facility] [address] [place], [address] Sodium [Moles/Vol] 138 mmol/L Normal 136-145 [facility] Comment on above: Order Comment: 1 Y Performed By: #### L 501.50241, L501.9520, L501.5425, L300.8000, L100.0500, L500.2500, L506.0400 #### [facility] [address] [place], [address] Urea nitrogen [Mass/Vol] 14 mg/dL Normal 7-18 [facility] Comment on above: Order Comment: 1 Y Performed By: #### L 501.59061, L501.9520, L501.5425, L300.8000, L100.0500, L500.2500, L506.0400 #### [facility] [address] [place], [address] Blood urea nitrogen (BUN)/cr eatinine ratioOrdered By: Bijan De La Paz on 03-30-2024 Urea nitrogen/Creatinine [Mass ratio] 23.1 mg/mg High 10-20 [facility] CBC-Complete Blood Cnt No Di ffon 03-30-2024 Erythrocyte distribution width (RBC) [Ratio] 12.0 % Normal 11.6-14.6 [facility] Comment on above: Performed By: #### L 501.68917, L501.9520, L501.5425, L300.8000, L100.0500, L500.2500, L506.0400 #### [facility] [address], [address] Hematocrit (Bld) [Volume fraction] 40.7 % Normal 37-47 [facility] Comment on above: Performed By: #### L 501.44953, L501.9520, L501.5425, L300.8000, L100.0500, L500.2500, L506.0400 #### [facility] [address] [place], [address] Hemoglobin (Bld) [Mass/Vol] 13.5 g/dL Normal 12.0-15.0 [facility] Comment on above: Performed By: #### L 501.46948, L501.9520, L501.5425, L300.8000, L100.0500, L500.2500, L506.0400 #### [facility] [address] [place], [address] MCH (RBC) [Entitic mass] 29.7 pg Normal 27.0-32.0 [facility] Comment on above: Performed By: #### L 501.92046, L501.9520, L501.5425, L300.8000, L100.0500, L500.2500, L506.0400 #### [facility] [address] [place], [address] MCHC (RBC) [Mass/Vol] 33.2 g/dL Normal 32-36 [facility] Comment on above: Performed By: #### L 501.69111, L501.9520, L501.5425, L300.8000, L100.0500, L500.2500, L506.0400 #### [facility] [address] [place], [address] MCV (RBC) [Entitic vol] 89.5 fL Normal 81-99 [facility] Comment on above: Performed By: #### L 501.19040, L501.9520, L501.5425, L300.8000, L100.0500, L500.2500, L506.0400 #### [facility] [address] [place], [address] Platelet mean volume (Bld) [Entitic vol] 8.4 fL Normal 6.2-12.0 [facility] Comment on above: Performed By: #### L 501.05274, L501.9520, L501.5425, L300.8000, L100.0500, L500.2500, L506.0400 #### [facility] [address] [place], [address] Platelets (Bld) [#/Vol] 389 10*3/uL Normal 150-450 [facility] Comment on above: Performed By: #### L 501.98265, L501.9520, L501.5425, L300.8000, L100.0500, L500.2500, L506.0400 #### [facility] [address] [place], [address] RBC (Bld) [#/Vol] 4.55 10*6/uL Normal 4.2-5.4 [facility] Comment on above: Performed By: #### L 501.37568, L501.9520, L501.5425, L300.8000, L100.0500, L500.2500, L506.0400 #### [facility] [address] [place], [address] RDW SD 39.1 fl Normal 35.1-43.9 [facility] Comment on above: Performed By: #### L 501.83675, L501.9520, L501.5425, L300.8000, L100.0500, L500.2500, L506.0400 #### [facility] [address] [place], [address] WBC (Bld) [#/Vol] 8.6 10*3/uL Normal 4.4-11.0 [facility] Comment on above: Performed By: #### L 501.30475, L501.9520, L501.5425, L300.8000, L100.0500, L500.2500, L506.0400 #### [facility] [address] [place], [address] Carbon dioxide measurementOr dered By: Bijan De La Paz on 03-30-2024 CO2 [Moles/Vol] 24.0 mmol/L 21.0-32.0 [facility] Chest 1 View (Portable)on Chest 1 View (Portable) [facility] Imaging Services [address] [place] [address] Chest 1 View (Portable) MR#: [id number] Acct: [id number] Name: JAVAD OLEARY Rep #: [id number] : 1975 F 48 From: Pedrito Lloyd MD PCP: Dr. Tammy Mejia MD Status: REG ER Study: Chest 1 View (Portable) Date of Exam: 03/30/24 Exam# [id number] Ordering Dr: Bijan De La Paz DO [id number] INDICATION: Tachycardia EXAMINATION/TECHNIQUE: X-RAY - XR Chest 1 View COMPARISON: None. Findings: Single frontal view of the chest. LUNG PARENCHYMA: No acute focal airspace disease or mass lesion. PLEURA: No pleural effusion. No pneumothorax. HEART/GREAT VESSELS: Cardiomediastinal silhouette is unremarkable. BONES: Osseous structures are unremarkable for age. RAD/Chest 1 View (Portable) IMPRESSION: Chest with no acute disease. Electronically Signed: Pedrito Lloyd MD at 5:09 EST , CC: Dr. Tammy Mejia MD; Dr. Bijan De La Paz DO Billposting Supervisor: Signed Normal [facility] Chloride measurementOrdered By: Bijan De La Paz on 03-30-2024 Chloride [Moles/Vol] 105 mmol/L 98-[address] [facility] D-Dimer Quantitative (DVT/PE )on 03-30-2024 D-DIMER QUANT 0.29 FEU/ug/m Normal 0.27-0.49 [facility] Comment on above: Result Comment: NORM AL D-Dimer level (<0.50) indicates no DVT or PE. Performed By: #### L 501.13872, L501.9520, L501.5425, L300.8000, L100.0500, L500.2500, L506.0400 #### [facility] Laboratory [address] [facility], [address] D-dimer measurement for deep venous thrombosisOrdered By: Bijan De La Paz on 03-30-2024 D-Dimer Quantitative (PE/DVT) 0.29 FEU/ug/m 0.27-0.49 [facility] Comment on above: NORMAL D-Dimer level (<0.50) indicates no DVT or PE. Direct serum free thyroxine (FT4) measurementOrdered By: Bijan De La Paz on 03-30-2024 Free T4 [Mass/Vol] 2.26 ng/dL High 0.76-1.46 [facility] Emergency Department Summary on 03-30-2024 Emergency Department Summary [facility] Medical Records Department [address] [place] [address] Emergency Department Summary 03/30/24 MR#: [id number] Acct: [id number] Name: JAVAD OLEARY Rep #: [id number] : 1975 48 From: Bijan De La Paz DO PCP: Dr. Tammy Mejia MD Status:REG ER Location: ED HPI History of Present Illness Chief Complaint: Palpitations PFSH PFSH Medical History no medical history Home Medications ???Medication ???Instructions ???Recorded ???Last Taken ???Type atenolol 25 mg tablet 25 mg PO DAILY 30 days #30 tabs 03/30/24 Unknown Rx cetirizine 10 mg tablet (24Hour 10 mg PO DAILY PRN allergy symptoms 03/30/24 Unknown History Allergy) Allergy/AdvReac Type Severity Reaction Status Date / Time naproxen Allergy Swelling Verified 03/30/24 02:27 EXAM Physical Exam Const Vital Signs: 03/30/24 02:24 03/30/24 02:29 03/30/24 03:12 Temperature 98 F Temperature Source Oral Pulse Rate 145 H 116 H Respiratory Rate 31 H 20 H Respiratory Effort Normal Blood Pressure 189/90 H 134/67 H Blood Pressure Mean 123 89 Pulse Ox 95 98 Oxygen Delivery Method Nasal Cannula Room Air 03/30/24 04:00 03/30/24 05:00 Temperature Temperature Source Pulse Rate 119 H 96 Respiratory Rate 21 H 24 H Respiratory Effort Blood Pressure 143/82 H 134/81 H Blood Pressure Mean 102 98 Pulse Ox 99 98 Oxygen Delivery Method Room Air Room Air [facility] Narrative Medical decision making narrative: HISTORY OF PRESENT ILLNESS: 48-year-old female presents with palpitations. Patient notes elevated heart rate since yesterday evening. She notes elevated heart rate woke her up at 2 AM. She also planes of diaphoresis and sweating. Denies vomiting or diarrhea. Denies decreased p.o. intake. Denies cough fever chills. Denies history of thyroid abnormalities. Denies drug use. The patient denies recent surgery in the last 4 weeks or immobilization in the last 3 days, denies previous diagnosis of DVT or PE, hemoptysis, unilateral leg swelling or malignancy with treatment the last 6 months or palliative. No estrogen use noted. Denies personal family history of abnormal heart rhythms. REVIEW OF SYSTEMS: Pertinent positives: Palpitations Pertinent negatives: Chest pain, shortness of breath, vomiting, diarrhea, abdominal pain, decreased p.o. intake PHYSICAL EXAM: Nursing triage notes reviewed, Vital signs reviewed Constitutional: please see [facility] HENT: MMM Eyes: Pupils equal round and reactive to light, Extraocular muscles intact Neck: No stridor, no JVD, full neck ROM Lungs: Clear to auscultation, No wheezing or rales. No increased work of breathing, no conversational dyspnea, no accessory muscle use, no nasal flaring. No respiratory distress noted Heart: Regular rate and rhythm, No murmurs, No rubs and No gallops, 2+ distal pulses (radial, femoral, posterior tibial) in all extremities Abdomen: Soft, there is no tenderness, rigidity, rebound or guarding, no obvious peritoneal signs, no palpable pulsatile abdominal masses, no auscultated abdominal bruit : No CVAT Extremities: No edema Neuro: No new focal neurological deficits, cranial nerves II through XII intact, 5/5 strength in all present extremities. Intact sensation to light touch in all present extremities, 2+ reflexes bilateral patella tendons. Skin: No rash or lesions noted MEDICAL DECISION MAKING: Chief Complaint: Palpitations External records reviewed: Reviewed prior cardiovascular testing Factors affecting care: dermatitis, UTI Social determinants of health: Denies cocaine, methamphetamine or illicit drugs History obtained from others: Consults: none MDM Narrative: The patient was initially hypertensive with a blood pressure 189/90, tachycardic with a heart rate of 145, tachypneic with a respiratory to 31 saturating 95% on room air. No acute distress. Exam without focal pulse deficits, lungs were clear. No stigmata of VTE on initial exam. I considered the following differential diagnosis: Arrhythmia, anemia, electro disturbance, ACS, PE, dehydration, thyroid dysfunction, anxiety I obtained a broad lab and imaging workup to further elucidate the etiology of the patient's complaints. Will treat the patient initially with 500 cc bolus ALL IMAGES (IF OBTAINED) HAVE BEEN PERSONALLY REVIEWED AND INTERPRETED BY MYSELF. EKG with sinus tachycardia rate of 139, left axis deviation, normal intervals, no obvious STEMI CBC without leukocytosis, severe anemia, no thrombocytopenia. D-dimer negative making PE less likely Thyroid studies consistent with hyperthyroidism with low TSH and elevated T3 and T4 I have personally reviewed the patient's chest x-ray. Chest x-ray is unremarkable for pulmonary edema, pneumothorax, (more content not included)... Normal [facility] Erythrocyte distribution wid th ratioOrdered By: Bijan De La Paz on 03-30-2024 Erythrocyte distribution width (RBC) [Ratio] 12.0 % 11.6-14.6 [facility] Erythrocyte distribution wid th standard deviationOrdered By: Bijan De La Paz on 03-30-2024 Erythrocyte distribution width (RBC) [Entitic vol] 39.1 fL 35.1-43.9 [facility] Estimated glomerular filtrat ion rate (GFR) AmericanOrdered By: Bijan De La Paz on 03-30-2024 Estimated GFR (MDRD) Amer 136 mL/min >60 [facility] Comment on above: GFR Calc Estimation of creatinine jey aranceOrdered By: Bijan De La Paz on 03-30-2024 Estimated Creatinine Clearance Calc 111.51 ml/min [facility] Free T3on 03-30-2024 Free T3 [Mass/Vol] 8.1 pg/mL High 2.18-3.98 [facility] Comment on above: Order Comment: 1 Y Performed By: #### L 501.49217, L501.9520, L501.5425, L300.8000, L100.0500, L500.2500, L506.0400 #### [facility] Laboratory [address] [place], [place], [id number] Free T4Aasgtuv By: Bijan grajeda on 03-30-2024 Free Triiodothyronine (T3) pg/dL 8.1 pg/mL High 2.18-3.98 [facility] Glomerular filtration rate ( GFR) estimationOrdered By: Bijan De La Paz on 03-30-2024 Estimated GFR (MDRD) Non-Af Amer 112 mL/min >60 [facility] Comment on above: Non- GFR Calc Glucose measurementOrdered B y: Bijan De La Paz on 03-30-2024 Glucose [Mass/Vol] 120 mg/dL High 74-106 [facility] Comment on above: Fasting Glucose resu lt from 100 to 125 mg/dL suggests IMPAIRED HOMEOSTASIS per A.D.A. criteria. Hematocrit Auto (Bld) [Volum e fraction]Ordered By: Bijan De La Paz on 03-30-2024 Hematocrit (Bld) [Volume fraction] 40.7 % 37-47 [facility] Hemoglobin measurementOrdere d By: Bijan De La Paz on 03-30-2024 Hemoglobin (Bld) [Mass/Vol] 13.5 g/dL 12.0-15.0 [facility] L501.4020on 03-30-2024 TROPONIN-I HS 6 pg/mL Normal 3.0-54.0 [facility] Comment on above: Result Comment: Yohan crawford Note: New Test Units and Gender Specific Reference Ranges. For more information see Policy Stat Procedure [place] High Sensitivity Troponin (TNIH) and attachments. Performed By: #### L 501.4020 #### [facility] [address] [place], [address] L501.5425on 03-30-2024 TROPONIN-I HS 5 pg/mL Normal 3.0-54.0 [facility] Comment on above: Order Comment: 1 Y Result Comment: Yohan crawford Note: New Test Units and Gender Specific Reference Ranges. For more information see Policy Stat Procedure [place] High Sensitivity Troponin (TNIH) and attachments. Performed By: #### L 501.70371, L501.9520, L501.5425, L300.8000, L100.0500, L500.2500, L506.0400 #### [facility] [address] [place], [address] MCV (mean corpuscular volume ) determinationOrdered By: Bijan De La Paz on 03-30-2024 MCV (RBC) [Entitic vol] 89.5 fL 81-99 [facility] Mean corpuscular hemoglobin (MCH) determinationOrdered By: Bijan De La Paz on 03-30-2024 MCH (RBC) [Entitic mass] 29.7 pg 27.0-32.0 [facility] Mean corpuscular hemoglobin concentration (MCHC) determinationOrdered By: Bijan De La Paz on 03-30-2024 MCHC (RBC) [Mass/Vol] 33.2 g/dL 32-36 [facility] Mean platelet volume determi nationOrdered By: Bijan De La Paz on 03-30-2024 Platelet mean volume (Bld) [Entitic vol] 8.4 fL 6.2-12.0 [facility] Platelet countOrdered By: Judd De La Paz on 03-30-2024 Platelets (Bld) [#/Vol] 389 10*3/uL 150-450 [facility] Potassium measurementOrdered By: Bijan De La Paz on 03-30-2024 Potassium [Moles/Vol] 3.9 mmol/L 3.5-5.1 [facility] Comment on above: Moderate Hemolysis, Result may be falsely increased. RBC Auto (Bld) [#/Vol]Ordere d By: Bijan De La Paz on 03-30-2024 RBC (Bld) [#/Vol] 4.55 10*6/uL 4.2-5.4 [facility] Serum anion gap measurementO rdered By: Bijan De La Paz on 03-30-2024 Anion gap [Moles/Vol] 9 mmol/L 5-15 [facility] Serum or plasma calcium edith urement (mass/volume)Ordered By: Bijan De La Paz on 03-30-2024 Calcium [Mass/Vol] 9.2 mg/dL 8.5-10.1 [facility] Serum or plasma creatinine m easurement (mass/volume)Ordered By: Bijan De La Paz on 03-30-2024 Creatinine [Mass/Vol] 0.60 mg/dL 0.55-1.02 [facility] Comment on above: The validity of the calculated GFR & GFRAA in patients over 70 years has not been determined. Clinical correlation is essential. Serum or plasma urea nitroge n measurement (mass/volume)Ordered By: Bijan De La Paz on 03-30-2024 Urea nitrogen [Mass/Vol] 14 mg/dL 7-18 [facility] Sodium levelOrdered By: Quin De La Paz on 03-30-2024 Sodium [Moles/Vol] 138 mmol/L 136-145 [facility] T4 Free Directon 03-30-2024 T4 FREE DIRECT 2.26 ng/dL High 0.76-1.46 [facility] Comment on above: Order Comment: 1Y Performed By: #### L 501.97915, L501.9520, L501.5425, L300.8000, L100.0500, L500.2500, L506.0400 ####[facility] [address] [place], [place], [id number] TSH QnOrdered By: Lux on 03-30-2024 Thyroid Stimulating Hormone (TSH) < 0.005 uIU/mL Low 0.358-3.740 [facility] Thyroid Stim Hormone (TSH)on 03-30-2024 TSH Qn m[IU]/L Low 0.358-3.740 [facility] Comment on above: Order Comment: 1 Y Performed By: #### L 501.81463, L501.9520, L501.5425, L300.8000, L100.0500, L500.2500, L506.0400 #### [facility] [address] [place], [place], [address] Troponin IOrdered By: Bijan De La Paz on 03-30-2024 Troponin I High Sensitivity 6 pg/mL 3.0-54.0 [facility] Comment on above: Please Note: New Nicole t Units and Gender Specific Reference Ranges. For more information see Policy Stat Procedure [place] High Sensitivity Troponin (TNIH) and attachments. White blood cell (WBC) count Ordered By: Bijan De La Paz on 03-30-2024 WBC (Bld) [#/Vol] 8.6 10*3/uL 4.4-11.0 [facility] Urine Cultureon 11-05-2023 URC Presumptive E. coli Empire Count >100,000 Presumptive E. coli: REACTION Ampicillin Islt GERMAN <=2 S Ampicillin+Sulbac Islt GERMAN <=2 S ceFAZolin Islt GERMAN <=4 S Cefepime Islt GERMAN <=0.12 S cefTRIAXone Islt GERMAN <=0.25 S Ciprofloxacin Islt GERMAN <=0.25 S Ertapenem Islt GERMAN <=0.12 S B-Lactamase Extended Susc Islt NEG Gentamicin Islt GERMAN <=1 S Imipenem Islt GERMAN <=0.25 S levoFLOXacin Islt GERMAN <=0.12 S Nitrofurantoin Islt GERMAN <=16 S Pip+Tazo Islt GERMAN <=4 S Tobramycin Islt GERMAN <=1 S TMP SMX Islt GERMAN <=20 S Normal [facility] Comment on above: Performed By: #### M 100.2200 ####[facility] [address] [place], [address] Urgent Care Visit Reporton 0 11-03-2023 Urgent Care Visit Report [facility] [address], [address] [place], [place] [address] OFFICE VISIT Date of Service: 11/03/23 MR#: [id number] Acct: [id number] Name: MAMTAJAVAD Rep #: [id number] : 1975 Provider: HUAN Galdamez Age/Sex: 48/F Location: [facility] Status: Signed Intake Vital Signs 05/07/22 09:59 11/03/23 11:45 Height 5 ft 3 in BP 130/66 H Blood Pressure Location Lt brachial Position Sitting Respiration 15 Pulse 108 H Pulse Source NIBP Temp 100.0 F H Temp Source Temporal Pulse Oximetry (%) 98 Oxygen Delivery Method room air Intake Visit Reasons: Urinary tract infection Chief Complaint: dysuria Beck Operator Required: No Is patient in pain?: No Allergies naproxen Allergy (Verified 11/03/23 11:46) Swelling Is last menstrual period known: No Post menopausal: No Patient : No Have you fallen in the past year?: No Nurse's Note: dysuria and urinary urgency since last noc. denies abd pain/back pain/blood in urine. concern for UTI HPI HPI Chief Complaint: dysuria Details: JAVAD OLEARY, is a 48 F who presents to the office today for complaint of dysuria and increasing urgency/frequency starting last night. Patient denies pelvic or abdominal pain. No fever, chills, sweats. No nausea, vomiting or diarrhea. No loss of bowel or bladder function. No other associated symptoms or alleviating/aggravatin g factors. ROS Const Constitutional: No other (6 system ROS completed with pertinent findings in the HPI otherwise normal.) Exam Const General: cooperative and healthy appearing Resp Effort Inspection: normal respiratory effort Auscultation: Bilateral: Clear to Auscultation Cardio Rate: regular rate Rhythm: regular rhythm GI Auscultation: normal bowel sounds General: No CVA tenderness Psych Appearance: grossly normal Mental Status: mental status grossly normal Results POC Urinalysis Dip (Clinic) Office Urine Color Yellow Last Edit by Lissy Avila on 11/03/23 11:59 Office Urine Clarity Clear Last Edit by Lissy Avila on 11/03/23 11:59 Office Urine Glucose Negative Last Edit by Lissy Avila on 11/03/23 11:59 Office Urine Ketones Negative Last Edit by Lissy Avila on 11/03/23 11:59 Off Ur Spec Lipscomb 1.025 Last Edit by Lissy Avila on 11/03/23 11:59 Office Urine pH 5.0 Last Edit by Lissy Avila on 11/03/23 11:59 Office Urine Bilirubin Negative Last Edit by Lissy Avila on 11/03/23 11:59 Office Urine Urobilinogen Negative Last Edit by Lissy Avila on 11/03/23 11:59 Office Urine Blood Large Last Edit by Lissy Avila on 11/03/23 11:59 Office Urine Blood Hemolyzed NA Last Edit by Lissy Avila on 11/03/23 11:59 Office Urine Protein 2+ Last Edit by Lissy Avila on 11/03/23 11:59 Office Urine Nitrate Positive Last Edit by Lissy Avila on 11/03/23 11:59 Off Ur Leukocytes Positive Last Edit by Lissy Avila on 11/03/23 11:59 Coding Level of Care Code Off vis,est,level 3 Diagnoses Urinary tract infection N39.0 Assessment and Plan Assessment and Plan (1) Urinary tract infection: Plan: Macrobid as prescribed today. Encouraged to get plenty of rest, drink lots of clear liquids, and use Tylenol or Ibuprofen (unless contraindicated) for fever and comfort. Patient also educated on other symptomatic management techniques. To be seen in 7-10 days if no improvement; sooner if worsening of symptoms. Patient advised of potential red flags and when appropriate to report to the ED. Patient verbalized understanding and agreement with all the above. Orders: Orders POC Urinalysis Dip (Clinic) Today R30.0 - Dysuria Culture, Urine Today N39.0 - Urinary tract infection, site not specified Medications: New nitrofurantoin monohyd/m-cryst 100 mg administer with a meal/food; swallow whole; do not open, crush, dissolve , or chew 1 cap PO Q12H 14 caps 0RF 7 days Clinical Quality Measures Falls Risk Screening/Assistive Devices Have you fallen in the past year?: No 11/03/23 1211 Date Marcelino Vivar Signature: Date (if applicable) CC: Normal [facility] MA MAMMOGRAM SCREENING BILAT ERAL W/TOMOon 08-24-2023 MA MAMMOGRAM SCREENING BILATERAL W/JERAMY ORIGINAL FROM: PATRICIA [address] [address] PROCEDURE FOR: JAVAD OLEARY [address] [place] [address] Home: PID#: [id number] Exam#: [id number] : 1975 Age: 47 TO: STEVIE ELKINS MD [address] [place], [place] [address] Fax: NO FAX EXAMINATION: SCREENING DIGITAL BILATERAL MAMMOGRAM WITH TOMOSYNTHESIS, 08/22/2023 9:31 am TECHNIQUE: Screening mammography of the bilateral breasts was performed with tomosynthesis. 2D standard and 3D tomosynthesis combination imaging performed through both breasts in the MLO and CC projection. Computer aided detection was utilized in the interpretation of this exam. COMPARISON: 01/29/2018 HISTORY: Breast cancer screening FINDINGS: BREAST DENSITY: Heterogeneously dense There are no significant masses or calcifications. IMPRESSION: No mammographic evidence of malignancy. Continued screening with annual mammograms is recommended. Rashmi Lozazick risk calculations, generated with the history provided, report this patient's 10 year risk and lifetime risk for developing breast cancer at 2.6% and 12.6%, respectively. Based on this assessment tool, if the patient's calculated lifetime risk is below 20%, then the patient is considered at average risk for developing breast cancer. If the patient's calculated lifetime risk is at or above 20%, then the patient is considered high risk for developing breast cancer and may be a candidate for supplemental breast MRI screening in addition to annual mammographic screening per the [employer]. I have personally reviewed the images of this examination and agree with the resident's findings and interpretation. BIRADS: MAMMOGRAM BI-RADS: 1: Negative RECALL: 1 year screening RECALL TYPE: mammo LETTER SENT: Normal BI-RADS 1 and 2 Interpreted by: Valente Arriola MD Preliminary Report By: Rony Sherman Electronically signed By Valente Arriola MD Dictated Date: 08/24/2023 4:05:34 PM Prelim Date: 08/24/2023 4:44:05 PM Sign Date: 08/24/2023 4:44:05 PM Ordering Provider: STEVIE ELKINS Dry Cleaner Apprentice: TRAE CASTILLO RT(R)(M)(CT) MOBILE SALES ASSISTANT letter sent: Normal BI-RADS 1 and 2 Mammogram BI-RADS: 1 Negative Normal [facility] ([place]) [facility] Reporton 2023 [facility] Report . Pathology Reports Accession: Collected Date/Time: Received Date/Time: Pathologist: [id number] 08/08/2023 09:31 EDT 08/08/2023 18:00 EDT Super[facility] Report SPECIMEN: Specimen Description: Liquid Prep w/ HPV Specimen: Cervical/Endocervical Screening or Diagnostic: Screening RELEVANT HISTORY: LMP: 07/20/23 SPECIMEN ADEQUACY: SATISFACTORY FOR EVALUATION Endocervical/Transform ational zone component present INTERPRETATION/RESULTS : NEGATIVE FOR INTRAEPITHELIAL LESION OR MALIGNANCY HIGH RISK HPV TESTING: Event Code Result HPV Interp See Interp HPVN HPV Interp Text: High Risk HPV Typing: NEGATIVE HPV types 16, 18, 31, 33, 35, 39, 45, 51, 52, 56, 58, 59, 66 and 68 DNA were undetectable or below the pre-set threshold. The jarad High-Risk HPV DNA Test is not intended for use as a screening device for Pap normal women under age 30 and is not intended to substitute for regular Pap screening. The jarad High-Risk HPV DNA Test is designed to augment existing methods for the detection of cervical disease and should be used in conjunction with clinical information derived from other diagnostic and screening tests, physical examinations and full medical history in accordance with appropriate patient management procedures. NOTE: A negative result does not preclude the presence of HPV infection because results depend on adequate specimen collection, absence of inhibitors and sufficient DNA to be detected. As of: 08/14/23 14:58 EDT COMMENT: This Pap Test was successfully processed and evaluated with the assistance of the [employer] Test Imaging System. Pathology Reports Accession: Collected Date/Time: Received Date/Time: Pathologist: [id number] 08/08/2023 09:31 EDT 08/08/2023 18:00 EDT Electronically Signed by Pathology report verified by [facility] Screened by: PRASANNA Electronically signed by Delia JENKINS (ASCP) Sign-Out Date: 08/14/2023 14:59 Performing Lab: [facility], [address] [place] [address] Pathology Dept Disclaimer The Pap test is a screening test for cervical cancer. As evidenced by published data, it is subject to both inherent false negative and false positive results. Your patient's results should be interpreted in context with pertinent clinical history including gynecological examination. Normal [facility] ([place] HPVon 08-10-2023 HPV Interp Normal See Interp HPVN [facility] [place] Comment on above: Order Comment: Order placed by AP_HPV_ORDER rule from [id number] Result Comment: High Risk HPV Typing: NEGATIVE HPV types 16, 18, 31, 33, 35, 39, 45, 51, 52, 56, 58, 59, 66 and 68 DNA were undetectable or below the pre-set threshold. The jarad High-Risk HPV DNA Test is not intended for use as a screening device for Pap normal women under age 30 and is not intended to substitute for regular Pap screening. The jarad High-Risk HPV DNA Test is designed to augment existing methods for the detection of cervical disease and should be used in conjunction with clinical information derived from other diagnostic and screening tests, physical examinations and full medical history in accordance with appropriate patient management procedures. NOTE: A negative result does not preclude the presence of HPV infection because results depend on adequate specimen collection, absence of inhibitors and sufficient DNA to be detected. See Interp HPVN Performed By: #### H PV #### [place] [address] HPV Source Cervix Normal [facility] ([place] Comment on above: Order Comment: Order placed by AP_HPV_ORDER rule from [id number] Performed By: #### H PV #### [place] [address] LABORATORYOrdered By: Hugo Crow on 08-08-2023 HPV Interp High Risk HPV Typing : NEGATIVEHPV types 16, 18, 31, 33, 35, 39, 45, 51, 52, 56, 58, 59, 66 and 68 DNA wereundetectable or below the pre-set threshold.The jarad High-Risk HPV DNA Test is not intended for use as a screening device forPap normal women under age 30 and is not intended to substitute for regular Papscreening.The jarad High-Risk HPV DNA Test is designed to augment existing methods for thedetection of cervical disease and should be used in conjunction with clinicalinformation derived from other diagnostic and screening tests, physical examinationsand full medical history in accordance with appropriate patient managementprocedures.N OTE: A negative result does not preclude the presence of HPV infection because resultsdepend on adequate specimen collection, absence of inhibitors and sufficientDNA to be detected. Normal See Interp HPVN Auto Viro/Sero SS Specimen source Nom (Unsp spec) Cervix (08/08/23 9:31 AM) Normal Auto Viro/Sero SS Vital Signs Date Time Vital Sign Value Performing Clinician Faci lity 07-11-2024 09:51-0400 Body height 160.[address] Tammy Mejia MD Work Phone: [facility] 07-11-2024 09:51-0400 Body mass index (BMI) [Ratio] 32.8 kg/m2 Dr. Tammy Mejia MD Work Phone: [facility] 07-11-2024 09:51-0400 Body weight 83.[address] Tammy Mejia MD Work Phone: [facility] 07-11-2024 09:51-0400 Diastolic blood pressure 83 mm[Hg] Dr. Tammy Mejia MD Work Phone: [facility] 07-11-2024 09:51-0400 Heart rate 78 /min Dr. Tammy Mejia MD Work Phone: [facility] 07-11-2024 09:51-0400 SaO2% (BldA) [Mass fraction] 96 % Dr. Tammy Mejia MD Work Phone: [facility] 07-11-2024 09:51-0400 Systolic blood pressure 125 mm[Hg] Dr. Tammy Mejia MD Work Phone: [facility] 04-19-2024 13:23-0500 Body mass index (BMI) [Ratio] 30.8 kg/m2 Dr. Tammy Mejia MD Work Phone: [facility] 04-19-2024 13:23-0500 Body weight 78.[address] Tammy Mejia MD Work Phone: 8(981)581-284807 [place] [address] 04-19-2024 13:23-0500 Diastolic blood pressure 66 mm[Hg] Dr. Tammy Mejia MD Work Phone: 8(026)372-104407 [place] [address] 04-19-2024 13:23-0500 Heart rate 116 /min Dr. Tammy Mejia MD Work Phone: 7(117)311-884013 [address] 04-19-2024 13:23-0500 SaO2% (BldA) [Mass fraction] 97 % Dr. Tammy Mejia MD Work Phone: 7(031)587-810107 [place] [address] 04-19-2024 13:23-0500 Systolic blood pressure 144 mm[Hg] Dr. Tammy Mejia MD Work Phone: [facility] 03-30-2024 05:51-0500 Body temperature 97.9 [degF] Dr. Tammy Mejia MD Work Phone: 0(202)796-210513 [address] 03-30-2024 05:51-0500 Diastolic blood pressure 52 mm[Hg] Dr. Tammy Mejia MD Work Phone: 5(543)214-710307 [place] [address] 03-30-2024 05:51-0500 Heart rate 87 /min Dr. Tammy Mejia MD Work Phone: 7(263)702-081807 [place] [address] 03-30-2024 05:51-0500 Respiratory rate 20 /min Dr. Tammy Mejia MD Work Phone: 4(111)979-170507 [place] [address] 03-30-2024 05:51-0500 SaO2% (BldA) [Mass fraction] 99 % Dr. Tammy Mejia MD Work Phone: 6(409)699-275907 [place] [address] 03-30-2024 05:51-0500 Systolic blood pressure 130 mm[Hg] Dr. Tammy Mejia MD Work Phone: [facility] 03-30-2024 02:24-0500 Body mass index (BMI) [Ratio] 29.4 kg/m2 Dr. Tammy Mejia MD Work Phone: [facility] 03-30-2024 02:24-0500 Body weight 75.[address] Tammy Mejia MD Work Phone: [facility] Encounters Encounter Date Encounter Type Care Provider Facility Start: 10-02-2024 End: 10-02-2024 ambulatory MABEL HALL Facility:[facility] Start: 10-02-2024 End: 10-02-2024 Minor Procedure MABEL HALL [facility] Start: 09-05-2024 End: 09-05-[address] TAMMY MEJIA MD Facility:[facility] Start: 09-05-2024 End: 09-05-2024 Patient encounter procedure STEVIE ELKINS MD [facility] Start: 08-22-2024 End: 08-22-[address] [facility] Facility:[facility] Start: 07-11-2024 End: 07-11-[address] Cesar Moss MD -[facility] Work Phone: Start: 07-11-2024 End: 07-11-[address] [facility] [place] Start: 07-09-2024 End: 07-09-[address] Tammy Mejia MD Work Phone: [facility] Work Phone: Start: 07-09-2024 End: 07-09-[address] Cesar Moss MD -Laboratory, [place] Start: 07-09-2024 End: 07-09-[address] [facility] Facility:[facility] Start: 05-30-2024 End: 05-30-[address] Cesar Moss MD -Laboratory, [place] Start: 05-30-2024 End: 05-30-2024 ambulatory Cesar Ajay Facility:[facility] Start: 05-09-2024 End: 05-09-[address] Tammy Mejia MD -Laboratory, [place] Start: 05-09-2024 End: 05-09-2024 ambulatory Tammy Mejia Facility:[facility] Start: 04-19-2024 End: 04-19-[address] Cesar Moss MD -[facility] Work Phone: Start: 04-19-2024 End: 04-19-2024 ambulatory Cesar Moss Facility:[facility] Start: 04-16-2024 End: 04-16-[address] Tammy Mejia MD -Nuclear Medicine, [facility] Work Phone: Start: 04-16-2024 End: 04-16-2024 ambulatory Tammy Mejia Facility:[facility] Start: 04-09-2024 End: 04-09-[address] Tammy Mejia MD -Ultrasound, [facility] Work Phone: Start: 04-09-2024 End: 04-09-2024 ambulatory Tammy Mejia Facility:[facility] Start: 03-30-2024 End: 03-30-2024 Emergency department patient visit Dr. Bijan De La Paz DO -Emergency Department Work Phone: Start: 11-03-2023 End: 11-03-2023 ambulatory Marcelino PRESSLEY Facility:[facility] Start: 11-03-2023 End: 11-03-2023 ambulatory Marcelino PRESSLEY Facility:[facility] Start: 08-22-2023 End: 08-23-[address] TAMMY MEJIA MD Facility:[facility] Start: 08-22-2023 End: 08-22-2023 Patient encounter procedure STEVIE ELKINS MD [facility] Start: 08-08-2023 End: 08-13-2023 ambulatory STEVIE ELKINS MD Facility:[facility] Start: 08-08-2023 End: 08-13-2023 Encounter for gynecological examination (general) (routine) without abnormal findings STEVIE ELKINS MD Facility:[facility] Start: 08-08-2023 End: 08-12-2023 Outreach Lab STEVIE ELKINS MD [facility] Procedures Date Procedure Procedure Detail Performing Clinician Start: 04-16-[address] Tammy Mejia MD Work Phone: Start: 04-09-2024 US scan of thyroid Dr. Tammy Mejia MD Work Phone: Start: 03-30-2024 Plain chest X-ray Dr. Wayne Mejia MD Work Phone: Cholecystectomy STEVIE ELKINS MD Ligation of fallopian tube A AMADA ELKINS MD Plan of Treatment Date Care Activity Detail Author Patient Education ED Hyperthyroidism [facility] Work Phone: Patient referral [facility] Work Phone: T4 free measurement [facility] Thyroid stimulating hormone measurement [facility] Triiodothyronine, fr ee measurement [facility] Payers Date Payer Category Payer Private Health Insurance [id number] 2024 Unknown [id number] 2023 Self-pay 2023 Unknown [id number] 2023 Unknown [id number] 1975 Unknown [id number] 2.16.8 40.1.170022.3.579.2. 1975 Unknown [id number] 2.16.8 40.1.715216.3.579.2.7 1975 Unknown [id number] 2.16. [id number] 1975 Unknown [id number] 2.16.8 [id number] Unknown [id number] 2.16.8 40.1.901727.3.579.2.462 Unknown [id number] 2.16.8 40.1.396666.3.579.2.462 Unknown [id number] 2.16.8 40.1.308267.3.579.2.462 Unknown [id number] 2.16.8 40.1.019131.3.579.2.462 Unknown [id number] 2.16.8 40.1.900020.3.579.2.462 Unknown [id number] 2.16.8 40.1.953895.3.579.2.462 Unknown [id number] 2.16.8 40.1.722613.3.579.2.462 Unknown [id number] 2.16.8 40.1.474992.3.579.2.462 Unknown [id number] 2.16.8 40.1.566170.3.579.2.462 Unknown [id number] 2.16.8 40.1.358753.3.579.2.462 Unknown [id number] 2.16.8 [id number] Social History Date Type Detail Facility Start: 08-08-2023 End: 04-19-2024 Tobacco smoking status Never smoked tobacco (finding) [facility] Start: 1975 Sex Assigned At Female A [facility] Start: 06-21-2018 End: 07-17-2024 Sex Female (finding) [facility] Mental Status Date Assessment Result Facility 03-30-2024 Cognitive function Awake;Alert;Appropriat e [facility] Work Phone: Clinical Notes 04-19-2024 to 10-02-2024 Note Date & Type Note Facility 10-02-2024 Evaluation + Plan note Extrac oral from: Title:Clinical Document Author:MABEL HALL ate:10/02/24 BOUNTIFUL ADMISSION HISTORY AN D PHYSICIAL CHIEF COMPLAINT: Colorectal cancer screening HISTORY OF PRESENT ILLNESS: Colorectal cancer screening REVIEW OF SYSTEMS: Constitutional: denies weight loss Cardiovascular:denies chest pain, palpitations Respiratory:denies shortness of breath Gastrointestinal:no abd pain Musculoskeletal: no arthralgias Skin: no rashes ACTIVE PROBLEMS: (1) Graves disease ([id number]) MEDICATIONS: Active Inpt Meds: None Active PRN Meds: None One Time Meds: None Active IV Meds: Sodium Chloride 0.9% intravenous solution 1,000 mL (NS 1,000 mL) Start: 10/02/24 6:43:00 EDT, Rate: 20 mL/hr, 10/02/24 6:43:00 EDT ALLERGIES: (1) naproxen FAMILY HISTORY: SOCIAL HISTORY: PHYSICAL EXAM: VITALS: [id number](kg) 10/02 06:5136.5--[id number]/04 77.3 24 Hr Tmax: 36.5 at 10/02 06:51 36 Hr Tmax: 36.5 at 10/02 06:51 Vital Signs are the last 5 in the past 48 hours. Weights display the last 5 within 7 days. Initial Wt: 10/02 77.3 kg 170 lb Current Wt: 10/02 77.3 kg 170 lb Colorectal cancer screening morning physical exam alert and oriented cardio; regular without murmur pulm; clear abd; soft, nontender LABS: No 36hr Lab Data DIAGNOSTICS: IMPRESSION: Colorectal cancer screening okay PLAN: Colonoscopy as discussed in the office [facility] 06-04-2025 Hospital Discharge instructions Patient Education 10/02/2024 07:50:04 Monitored Anesthesia Care, Care After Monitored Anesthesia Care, Care After These instructions provide you with information about caring for yourself after your procedure. Your health care provider may also give you more specific instructions. Your treatment has been plannedaccording to current medical practices, but problems sometimes occur. Call your health care provider if you have any problems or questions after your procedure. What can I expect after the procedure? After your procedure, you may: Feel sleepy for several hours. Feel clumsy and have poor balance for several hours. Feel forgetful about what happened after the procedure. Have poor judgment for several hours. Feel nauseous or vomit. Have a sore throat if you had a breathing tube during the procedure. Follow these instructions at home: For at least 24 hours after the procedure: Have a responsible adult stay with you. It is important to have someone help care for you until youare awake and alert. Rest as needed. Do not: ?Participate in activities in which you could fall or become injured. ?Drive. ?Use heavy machinery. ?Drink alcohol. ?Take sleeping pills or medicines that cause drowsiness. ?Make important decisions or sign legal documents. ?Take care of children on your own. Eating and drinking Follow the diet that is recommended by your health care provider. If you vomit, drink water, juice, or soup when you can drink without vomiting. Make sure you have little or no nausea before eating solid foods. General instructions Take izmo-xqe-lxtworf and prescription medicines only as told by your health care provider. If you have sleep apnea, surgery and certain medicines can increase your risk for breathing problems. Follow instructions from your health care provider about wearing your sleep device: ?Anytime you are sleeping, including during daytime naps. ?While taking prescription pain medicines, sleeping medicines, or medicines that make you drowsy. If you smoke, do not smoke without supervision. Keep all follow-up visits as told by your health care provider. This is important. Contact a health care provider if: You keep feeling nauseous or you keep vomiting. You feel light-headed. You develop a rash. You have a fever. Get help right away if: You have trouble breathing. Summary For several hours after your procedure, you may feel sleepy and have poor judgment. Have a responsible adult stay with you for at least 24 hours or until you are awake and alert. This information is not intended to replace advice given to you by your health care provider. Make sure you discuss any questions you have with your health care provider. Document Released: 08/07/2016 Document Revised: 07/16/2018 Document Reviewed: 08/07/2016 [employer] Patient Education 2020 [employer]. 10/02/2024 07:50:01 Colonoscopy, Adult, Care After Colonoscopy, Adult, Care After This sheet gives you information about how to care for yourself after your procedure. Your health care provider may also give you more specific instructions. If you have problems or questions, contact your health care provider. What can I expect after the procedure? After the procedure, it is common to have: A small amount of blood in your stool for 24 hours after the procedure. Some gas. Mild abdominal cramping or bloating. Follow these instructions at home: General instructions For the first 24 hours after the procedure: ?Do not drive or use machinery. ?Do not sign important documents. ?Do not drink alcohol. ?Do your regular daily activities at a slower pace than normal. ?Eat soft, idrp-aa-dsozax foods. Take qnqj-ajc-bjeozyt or prescription medicines only as told by your health care provider. Relieving cramping and bloating Try walking around when you have cramps or feel bloated. Apply heat to your abdomen as told by your health care provider. Use a heat source that your healthcare provider recommends, such as a moist heat pack or a heating pad. ?Place a towel between your skin and the heat source. ?Leave the heat on for 20 30 minutes. ?Remove the heat if your skin turns bright red. This is especially important if you are unable to feel pain, heat, or cold. You may have a greater risk of getting burned. Eating and drinking Drink enough fluid to keep your urine pale yellow. Resume your normal diet as instructed by your health care provider. Avoid heavy or fried foods thatare hard to digest. Avoid drinking alcohol for as long as instructed by your health care provider. Contact a health care provider if: You have blood in your stool 2 3 days after the procedure. Get help right away if: You have more than a small spotting of blood in your stool. You pass large blood clots in your stool. Your abdomen is swollen. You have nausea or vomiting. You have a fever. You have increasing abdominal pain that is not relieved with medicine. Summary After the procedure, it is common to have a small amount of blood in your stool. You may also have mild abdominal cramping and bloating. For the first 24 hours after the procedure, do not drive or use machinery, sign important documents, or drink alcohol. Contact your health care provider if you have a lot of blood in your stool, nausea or vomiting, a fever, or increased abdominal pain. This information is not intended to replace advice given to you by your health care provider. Make sure you discuss any questions you have with your health care provider. Document Released: 11/29/2004 Document Revised: 02/07/2018 Document Reviewed: 06/28/2016 [employer] Patient Education 2020 [employer]. Follow Up Care 09/11/2024 10:41:47 With:MABEL HALL DO, Clinical Gastroenterology Address: [address] [place] [address] [place] [address] [phone] When:Within 5 Year(s) With:TAMMY MEJIA MD Address: [address] [place] [id number]- When: Unknown [facility] 06-04-2025 Note Discharge Instructions Thank you for allowing [facility] to assist you with your healthcare needs. The following is importantdischarge information regarding your hospital visit. Your Care Team TAMMY MEJIA MD What to do next Instructions From Your Doctor Repeat colonoscopy 5 years Follow Up Appointments Follow Up with MABEL HALL DO Clinical Gastroenterology When:In 5 years Where:[address] [place] [address] [place] [address] [phone] Follow Up with TAMMY MEJIA MD Where:[address] [place] [id number]- The Following Activity and Diet Have Been Ordered for You Discharge Activity - Ordered -- Driving Restricted, No driving until tomorrow, 10/02/24 6:43:00 EDT Discharge Return to Work, School, or Sports (Discharge Return to status) - Ordered -- May return to: work, 10/02/24 6:43:00 EDT Discharge Diet - Ordered -- Type of Diet: Regular Diet, 10/02/24 6:43:00 EDT Allergies naproxen facial swelling, hives Medications Please ask your primary doctor or pharmacist before taking any other medication not listed, including over the counter drugs, herbal medications, vitamins and or supplements as they may interact withyour home medications. What How Much When Instructions Last Dose Unchanged cetirizine (ZyrTEC) Once a day Unchanged methIMAzole (methIMAzole 10 mg oral tablet) 1 tab(s) TAKE 1 TABLET BY MOUTH ONCE DAILY Unchanged multivitamin (Multivitamin) 1 tab(s) by mouth Every day Unchanged polyethylene glycol 3350 with electrolytes (PEG-3350 with Electrolytes (Eqv-GoLYTELY) oral powder for reconstitution) See instructions Take as directed starting 1 day before colonoscopy. Follow instructions as provided by your GI provider at [facility]. Please take this list to your next doctor s visit. Bring all medications you take, including over the counter medications, herbals and other supplements with you to your doctor s visit. Patients and families are reminded to discard old lists and to update any records with all medication providers or retail pharmacies. Education Materials Monitored Anesthesia Care, Care After These instructions provide you with information about caring for yourself after your procedure. Your health care provider may also give you more specific instructions. Your treatment has been plannedaccording to current medical practices, but problems sometimes occur. Call your health care provider if you have any problems or questions after your procedure. What can I expect after the procedure? After your procedure, you may: Feel sleepy for several hours. Feel clumsy and have poor balance for several hours. Feel forgetful about what happened after the procedure. Have poor judgment for several hours. Feel nauseous or vomit. Have a sore throat if you had a breathing tube during the procedure. Follow these instructions at home: For at least 24 hours after the procedure: Have a responsible adult stay with you. It is important to have someone help care for you until youare awake and alert. Rest as needed. Do not: ? Participate in activities in which you could fall or become injured. ? Drive. ? Use heavy machinery. ? Drink alcohol. ? Take sleeping pills or medicines that cause drowsiness. ? Make important decisions or sign legal documents. ? Take care of children on your own. Eating and drinking Follow the diet that is recommended by your health care provider. If you vomit, drink water, juice, or soup when you can drink without vomiting. Make sure you have little or no nausea before eating solid foods. General instructions Take ksnh-ilk-cckvngz and prescription medicines only as told by your health care provider. If you have sleep apnea, surgery and certain medicines can increase your risk for breathing problems. Follow instructions from your health care provider about wearing your sleep device: ? Anytime you are sleeping, including during daytime naps. ? While taking prescription pain medicines, sleeping medicines, or medicines that make you drowsy. If you smoke, do not smoke without supervision. Keep all follow-up visits as told by your health care provider. This is important. Contact a health care provider if: You keep feeling nauseous or you keep vomiting. You feel light-headed. You develop a rash. You have a fever. Get help right away if: You have trouble breathing. Summary For several hours after your procedure, you may feel sleepy and have poor judgment. Have a responsible adult stay with you for at least 24 hours or until you are awake and alert. This information is not intended to replace advice given to you by your health care provider. Make sure you discuss any questions you have with your health care provider. Document Released: 08/07/2016 Document Revised: 07/16/2018 Document Reviewed: 08/07/2016 [employer] Patient Education 2020 [employer]. Colonoscopy, Adult, Care After This sheet gives you information about how to care for yourself after your procedure. Your health care provider may also give you more specific instructions. If you have problems or questions, contact your health care provider. What can I expect after the procedure? After the procedure, it is common to have: A small amount of blood in your stool for 24 hours after the procedure. Some gas. Mild abdominal cramping or bloating. Follow these instructions at home: General instructions For the first 24 hours after the procedure: ? Do not drive or use machinery. ? Do not sign important documents. ? Do not drink alcohol. ? Do your regular daily activities at a slower pace than normal. ? Eat soft, njkd-vd-vewuog foods. Take zgep-uay-mpzscgi or prescription medicines only as told by your health care provider. Relieving cramping and bloating Try walking around when you have cramps or feel bloated. Apply heat to your abdomen as told by your health care provider. Use a heat source that your healthcare provider recommends, such as a moist heat pack or a heating pad. ? Place a towel between your skin and the heat source. ? Leave the heat on for 20 30 minutes. ? Remove the heat if your skin turns bright red. This is especially important if you are unable to feel pain, heat, or cold. You may have a greater risk of getting burned. Eating and drinking Drink enough fluid to keep your urine pale yellow. Resume your normal diet as instructed by your health care provider. Avoid heavy or fried foods thatare hard to digest. Avoid drinking alcohol for as long as instructed by your health care provider. Contact a health care provider if: You have blood in your stool 2 3 days after the procedure. Get help right away if: You have more than a small spotting of blood in your stool. You pass large blood clots in your stool. Your abdomen is swollen. You have nausea or vomiting. You have a fever. You have increasing abdominal pain that is not relieved with medicine. Summary After the procedure, it is common to have a small amount of blood in your stool. You may also have mild abdominal cramping and bloating. For the first 24 hours after the procedure, do not drive or use machinery, sign important documents, or drink alcohol. Contact your health care provider if you have a lot of blood in your stool, nausea or vomiting, a fever, or increased abdominal pain. This information is not intended to replace advice given to you by your health care provider. Make sure you discuss any questions you have with your health care provider. Document Released: 11/29/2004 Document Revised: 02/07/2018 Document Reviewed: 06/28/2016 [employer] Patient Education 2020 [employer]. Additional Information VACCINATE! IT SAVES LIVES! Members of the community who have not yet received the COVID-19 vaccine and would like to receive it can visit one of [facility] vaccine clinics. There are many vaccine clinic locations within the [facility]. For locations and available times, please visit [email or web address].coronavirus.[place].gov/. It is important to note that some COVID mobile vaccine clinics are held outdoors and may be canceled in rainy or stormy conditions. To learn more about pediatric vaccinations (ages 5-11), we invite you to visit the [facility] webpage. https://www.[facility].org/pages/7493-Ggxja-Tnwltqhrcci-Nawgkiyapq-Lrkza-Tns stions.htmlTo learn more about the COVID-19 vaccine, we invite you to visit the CDC website for a list of frequently asked questions.https://www.cdc.gov/coronavirus/2019-ncov/vaccines/faq.html [employer] Patient Portal Access Instructions: Stay connected with your healthcare team and access your personal medical information anytime with the [employer] Patient Portal. Please follow the directions below to create your [employer] account: 1.Access the email account you provided upon registration to the hospital/physician office.2.Look for an invitation email from [facility].3.Open the email and access the invitation link: AcceptInvitation to [facility].4.Fill in the required rios to create your account. To access your account, visit [email or web address]. Click the blue button labeled Access Patient Portal and then log in with the username and password that you created in the steps above. You will be able to view your test results, lab results, a summary of your visits, upcoming appointments and more. There is also a convenient messaging option where you can send secure messages to your p [employer]. In addition, you will have the ability to download any documents or summaries to your computer and/or send the information securely to a physician. Remember that your healthcare information is confidential, so carefully consider who you will allowto register on the [facility] Patient Portal for access to your information. You can also access the [facility] Patient Portal on the [facility] scarlett. Simply click on Patient Portal and then log into your account. If you would like to receive a full copy of your medical records, please contact the [facility] Medical Records Department by calling [phone], Monday through Monday between 8 a.m. and 4:30 p.m. HOW TO SAFELY DISPOSE OF PRESCRIPTION MEDICATIONS Please use one of the following methods to safely dispose of your unused medications. 1.Use a drug disposal kit: the drug disposal pouch allows you to safely discard your old and unuseddrugs. Ask your nurse to give you one when you are discharged.2.Visit a local take-back location: Many local pharmacies and police departments have programs that collect old and unwanted prescriptiondrugs. Call your local pharmacy or go to http://bit.ly/0K2Yh6b to find one close to you.3.Make use of household items: Use cat litter or old coffee grounds to dispose medications if other options arenot available. Mix your drugs with these household products, seal them in an airtight container andthrow it into the garbage. Call [facility]: [phone] to be sure your drugs can be disposed of in this way. Some medicines may require a different approach.4.Never flush your medications down the toilet. IF YOU HAVE BEEN PRESCRIBED AN OPIOID FOR PAIN If you have been prescribed an opioid (such as hydrocodone, oxycodone or morphine), it is critical to understand the possible side effects and risks of opioid pain medications. Even when taken as directed, opioids can have several side effects including: Tolerance, meaning you might need to take more of a medication for the same pain relief. Nausea, vomiting and/or constipation. Sleepiness, dizziness, dry mouth, confusion, depression or itching. Physical dependence, meaning you have withdrawal symptoms when a medication is stopped, can develop within a few days. KNOW YOUR RESPONSIBILITIES It is important to know exactly how much and how often to take the opioid pain medications you are prescribed. Never take opioids in higher amounts or more often than prescribed. Do not combine opioids with alcohol or other drugs that cause drowsiness, such as benzodiazepines, also known as benzos, including diazepam and alprazolam, muscle relaxants or sleep aids. Never sell or share prescription opioids. This is illegal. Store opioids in a secure place and out of reach of others (including children, family, friends and visitors). The last page of this document has been signed and retained as a CHART COPY. Signatures Patient Education Materials Monitored Anesthesia Care, Care After Colonoscopy, Adult, Care After Medication Leaflets My discharge plan and instructions have been reviewed and explained to me and I,JAVAD OLEARY understand my current condition and have read and understand these discharge instructions. I have received a written copy of the plan/instructions. If I have questions, I am aware that I should contact my doctor. Patient/Singer Songwriter Signature: Date/Time: Relationship to Patient: Witness Name/Signature: Date/Time: [facility]06-04-2025 Note Indication for Surgery Colorectal cancer screening Preoperative Diagnosis Colorectal cancer screening Postoperative Diagnosis 1 mm sigmoid polyp Operation Colonoscopy with snare polypectomy Surgeon(s) Mabel Hall D.O. Anesthesia MAC Estimated Blood Loss None Specimen(s) None Complications None Technique The patient was evaluated in the preoperative area and surgical consent was obtained. She was then brought to endoscopy and monitored on pulse oximetry, cardiac monitoring and placed on supplemental oxygen. She is placed in left lateral decubitus position and a surgical timeout was obtained. Sedation was provided by anesthesia. A digital exam was unremarkable. Colonoscope inserted into the rectumadvanced towards the cecum. Cecal pouch appeared normal. Photographs were obtained. Scope then carefully checked under a 6-minute withdrawal with a good prep. A 1 mm polyp was removed with snare polypectomy. The polyp was not retrieved. Scope then carefully directed into the rectum and retroflexed view of the was normal. The scope was removed. Patient is then transferred to the recovery area in stable condition vital signs. Discharge summary: 1. Final Diagnosis: 1 mm sigmoid polyp 2. Outcome: Patient tolerated procedure well without complication 3. Disposition: Patient was discharged home to follow previous diet and medications 4. Follow-up care: Follow-up with primary care physician as scheduled. Repeat exam in 5 years Digitally Signed by MABEL HALL DO on 10/02/2024 07:47 AM [facility]06-04-2025 Anesthesiology Consult note Patient: JAVAD OLEARY Age: 48 years Sex: Female : 1975 Associated Diagnoses: None Author: KESHAV LI APRN-PAYROLL COORDINATOR Preoperative Information Time of last food or liquid consumption: 10/02/2024 04:00:00 Anesthesia history Patient's history: negative. Family's history: negative. Review of Systems Ear/Nose/Mouth/Throat: Negative. Respiratory: Negative. Cardiovascular: Negative. Gastrointestinal: obese. Genitourinary: Negative. Endocrine: johanny. Musculoskeletal: Negative. Integumentary: Negative. Neurologic: Negative. Health Status Allergies: Allergic Reactions (Selected) Severity Not Documented Naproxen- Facial swelling, hives., Allergies (1) ActiveSeverityReaction naproxenfacial swelling, hives Current medications: (Selected) Inpatient Medications Ordered NS 1,000 mL: 20 mL/hr, Intravenous Prescriptions Prescribed PEG-3350 with Electrolytes (Eqv-GoLYTELY) oral powder for reconstitution: See Instructions, Take asdirected starting 1 day before colonoscopy. Follow instructions as provided by your GI provider at [facility]., 1 EA, 0 Refill(s) Documented Medications Documented Multivitamin: 1 tab(s), Oral, Daily, 0 Refill(s) ZyrTEC: qDay, 0 Refill(s) methIMAzole 10 mg oral tablet: 10 mg, 1 tab(s), TAKE 1 TABLET BY MOUTH ONCE DAILY, Medications (1) Active Scheduled: (0) Continuous: (1) NS (0.9% nacl) 1,000 mL 1,000 mL, Intravenous, 20 mL/hr PRN: (0) Problem list: Active Problems (1) Graves disease Histories Family History: Cardiac pacemaker Mother Atrial fibrillation Mother CHF - Congestive heart failure Grandparent Stroke Grandparent Macular disease Sister Mitral valve disorder Mother Procedure history: Tubal ligation ([id number]). Cholecystectomy ([id number]). Social History: Social & Psychosocial Habits Alcohol 10/02/2024 Use: Current Tobacco 10/02/2024 Tobacco Use: Never (less than 100 in l Physical Examination Vital Signs 10/02/2024 6:51 EDT Temperature Temporal Artery 36.5 DegC Apical Heart Rate 128 bpm >HHI Respiratory Rate 18 br/min Systolic Blood Pressure Non-Invasive 133 mmHg Diastolic Blood Pressure Non-Invasive 83 mmHg Vital Signs (last 24 hrs) Last Charted Temp Njuvtitw64.5 DegC (OCT 02 06:51) Heart Rate ApicalC 128bpm (OCT 02 06:51) VXK695 mmHg (OCT 02 06:51) DBP83 mmHg (OCT 02 06:51) BMI30.2 (OCT 02 06:55) Measurements from flowsheet : Measurements 10/02/2024 6:55 EDT Height 160.0 cm Admission Weight 77.3 kg Weight Method Stated [place] Body Weight 52.38 kg BSA Admission 1.81 Body Mass Index 30.2 kg/m2 Pain assessment: Pain Assessment 10/02/2024 6:51 EDT Primary Pain Intensity 0 Pain Scale Type 0-10 Pain scale . General: Alert and oriented. Airway: Normal temporomandibular joint mobility. Mallampati classification: II (soft palate, fauces, uvula visible). Head: Normocephalic. Dentition Evaluation: Own teeth. Neck: Supple. Respiratory: Lungs are clear to auscultation. Cardiovascular: Normal rate. Heart Sounds: Normal. Gastrointestinal: Soft. Musculoskeletal Normal range of motion. Integumentary: Intact. Neurologic: Alert, Oriented. Review / Management Results review: No qualifying data available , Lab results 10/02/2024 7:25 EDT SN - GCD - Post-operative Diagnosis SCREENING SN - GCD - Case Level OPD Level 3 10/02/2024 7:25 EDT SN - PP - Body Position Lateral Right Side-up Standard Intra-op 10/02/2024 7:24 EDT SN - Proc - Anesthesia Type MAC SN - Proc - EBL 0 mL SN - Proc - Actual Procedure COLONOSCOPY 10/02/2024 7:24 EDT SN - CAt - Case Attendee SN - CAt - Case Attendee SN - CAt - Case Attendee SN - CAt - Case Attendee SN - CAt - Case Attendee SN - CAt - Case Attendee SN - CAt - Case Attendee SN - CAt - Case Attendee SN - CAt - Case Attendee SN - CAt - Case Attendee SN - CAt - Role Performed Primary Surgeon SN - CAt - Role Performed Diamond Selector 1 SN - CAt - Role Performed Diamond Selector 2 SN - CAt - Role Performed Scrub 1 SN - CAt - Role Performed PAYROLL COORDINATOR 10/02/2024 7:03 EDT Sodium Chloride 0.9% Begin Bag 1,000 mL mL 10/02/2024 7:02 EDT Antecubital Right 10/02/2024 22 gauge Peripheral IV Activity: Insert new site Peripheral IV Dressing Condition: Clean, Dry, Intact Peripheral IV Dressing Activity: Applied, Transparent dressing Peripheral IV Line Status/Patency: Flushes easily, Continuous infusion Peripheral IV Site Condition: No complications Peripheral IV Equipment: Extension set Peripheral IV Number of Attempts: 1 10/02/2024 6:59 EDT [place] History and Physical 10/02/2024 6:55 EDT Designated Person #1 We May Share ARNOLD OLEARY [phone] Designated Person #1 Relationship Spouse Privacy Restrictions Requested None Height 160.0 cm Admission Weight 77.3 kg Weight Method Stated [place] Body Weight 52.38 kg BSA Admission 1.81 Body Mass Index 30.2 kg/m2 Status No, per patient Sensory Deficits None Infectious Disease Symptoms Patient states no symptoms Infectious Disease Recent Exposure No Alcohol and Drug Use No Employee of Institutional Living No Health Care Employee No History of Exposure to TB No History of Positive Chest X-Ray for TB No History of Positive TB Skin Test No Homeless No Known Immunosuppression No Recent Immigrant No Resident of Institutional Living No Bloody Sputum No Fatigue No Fever No Loss of Appetite No Night Sweats No Persistent Cough > 3 Weeks No Weight Loss No Barriers to Learning None evident Teaching Method Printed materials Preferred Spoken Language Anguillan Preferred Written Language Anguillan Patient's Current Physicians DR. HALL Discharge To, Anticipated Home independently Prev Test Positive/Diagnosis w/COVID-19 No Current Quarantine/Isolated any Illness No Any Contact with Sick Animals/Birds No Traveled Anywhere in Last 30 Days No No Personal Devices, Patient Valuables None Admission Note-Nursing Procedure/Therapy Intake 10/02/2024 6:51 EDT Temperature Temporal Artery 36.5 DegC Apical Heart Rate 128 bpm >HHI Respiratory Rate 18 br/min Systolic Blood Pressure Non-Invasive 133 mmHg Diastolic Blood Pressure Non-Invasive 83 mmHg Primary Pain Intensity 0 Pain Scale Type 0-10 Pain scale Heart Sounds ICU S1S2 Heart Rhythm Regular Respirations Unlabored Respiratory Pattern Regular Cough None Oxygen Therapy Room air Oxygen Saturation 99 % Abdomen Description Non-distended Skin Description [place] Skin Temperature Warm Skin Integrity Intact Skin Moisture General Dry Neurological Symptoms Patient denies Extremity Movement Equal Characteristics of Speech Clear Level of Consciousness Alert Strength All Extremities Strong Sensation All Extremities Intact Affect/Behavior Appropriate, Calm, Cooperative Orientation Oriented x 4 Berta Motor (2) Moves 4 extremities voluntarily or on command Berta Respirations (2) Spontaneous respiration without support, RR > 10 Berta Blood Pressure (2) BP 20% above or below preanesthetic level Berta Pulse (2) Pulse 20% above or below preanesthetic level Berta Oxygen Saturation (2) 94% or more Berta Level of Consciousness (2) Fully awake Berta III Score 12 Orientation Assessment Oriented x 4 Assistive Device None Positioning Repositions self Standard Safety ID band on, Allergy Band on, Call device within reach, Bed in low position, Wheels locked, Visitor at bedside 10/02/2024 6:47 EDT IV Present Present Allergies Yes Anesthesia Extension Set Applied Yes Senior Treasury Analyst On Yes Colon Prep Results Good Consent Form Signed Yes Patient Dressed In Hospital gown, No undergarments History & Physical Update On Chart Yes History & Physical On Chart Yes Bowel Prep Completed Yes Belongings At Bedside Cell phone, Pants, Purse, Shirt, Shoes, Socks NPO Status Maintained Allergy Band on and Verified Yes Patient ID Band on and Verified Yes Implants Verified Yes Pacemaker/AICD Verified Yes Site Verified by Patient/Family Yes Anesthesia Consent Signed Yes Last Fluid Intake 10/02/2024 4:00 Last Food Intake 09/30/2024 19:00 . Assessment and Plan [place] [employer] (ASA) physical status classification: Class II. Anesthetic Preoperative Plan Anesthetic technique: MAC. Postoperative pain management: Per surgeon. Informed consent: signed by patient. Digitally Signed by KESHAV LI on 10/02/2024 07:31 AM [facility]06-04-2025 Note BOUNTIFUL ADMISSION HISTORY AND PHYSICIAL CHIEF COMPLAINT: Colorectal cancer screening HISTORY OF PRESENT ILLNESS: Colorectal cancer screening REVIEW OF SYSTEMS: Constitutional: denies weight loss Cardiovascular:denies chest pain, palpitations Respiratory:denies shortness of breath Gastrointestinal:no abd pain Musculoskeletal: no arthralgias Skin: no rashes ACTIVE PROBLEMS: (1) Graves disease ([id number]) MEDICATIONS: Active Inpt Meds: None Active PRN Meds: None One Time Meds: None Active IV Meds: Sodium Chloride 0.9% intravenous solution 1,000 mL (NS 1,000 mL) Start: 10/02/24 6:43:00 EDT, Rate:20 mL/hr, 10/02/24 6:43:00 EDT ALLERGIES: (1) naproxen FAMILY HISTORY: SOCIAL HISTORY: PHYSICAL EXAM: VITALS: [id number](kg) 10/02 06:5136.5--[id number]/04 77.3 24 Hr Tmax: 36.5 at 10/02 06:51 36 Hr Tmax: 36.5 at 10/02 06:51 Vital Signs are the last 5 in the past 48 hours. Weights display the last 5 within 7 days. 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 July 11, 2024 9:39am [facility] Work Phone: Evaluation + Plan note Future Appointments Appointment Date:08/22/2023 09:45:00 AM Scheduled Provider: Location:[facility] Appointment Type:[place] Mammogram Screening Bilateral w/ Jeramy Future Scheduled Tests Radiology* MA Mammo Screening Bilateral w/ Jeramy 08/22/23 [facility] Hospital course Narrative No data available for this section [facility] Hospital Discharge instructions No data available for this section [facility] Progress note No data available for this section [facility] Reason for referral (narrative)No reason for referral information [facility]WW[facility] Work Phone: Summary Purpose Family History Relationship Condition Age at Onset Recorded Date/T ron mother History of mitral valve repair Unknown grandmother Arthritis Unknown No Family History Records Found Advance Directives Advance Directive Response Recorded Date/ Time Living Will No March 30 3:27am Do you have a Healthcare Power of Clinical Documentation Improvement Specialist? No March 30, 2024 3:27am Chief Complaint and Reason for Visit Chief Complaint Admit Date palpitations March 30, 2024 2:23am THYROID STORM April 09, 2024 12:41pm THYROID STORM, HYPERTHYROIDISM, NO NODUL E April 16, 2024 7:59am Hyperthyroid April 19, 2024 1:18pm 3 M FU July 11, 2024 9:3 9am Reason for Visit Admit Date Thyrotoxicosis due to Graves' disease De cember 2023 1:18pm Thyrotoxicosis due to Graves' disease [facility] 2024 9:39am Additional Source Comments Patient Care team informatio n (unrecognized section and content) Care Team Personnel Name: TAMMY MEJIA MD Member Role: Primary Care Physician Address: [address] [place] [id number]- [place] Tele[employer]: Care Team Related Persons Name: JOSE OLEARY Team Status: Active Member Role Status Dates Dr. Tammy Mejia MD Family Provider Active Dr. Tammy Mejia MD Primary Care Provider Active Team Status: Inactive Member Role Status Dates Dr. Tammy Mejia MD Primary Care Provider Active Start: March 30, 2024 End: March 30, 2024 Dr. Bijan De La Paz DO Attending Provider Active Start: March 30, 2024 End: March 30, 2024 Dr. Bijan De La Paz DO Emergency Provider Active Start: March 30, 2024 End: March 30, 2024 Team Status: Inactive Member Role Status Dates Dr. Tammy Mejia MD Primary Care Provider Active Start: April 09, 2024 End: April 09, 2024 Dr. Tammy Mejia MD Attending Provider Active Start: April 09, 2024 End: April 09, 2024 Dr. Tammy Mejia MD Referring Provider Active Start: April 09, 2024 End: April 09, 2024 Team Status: Inactive Member Role Status Dates Dr. Tammy Mejia MD Primary Care Provider Active Start: April 16, 2024 End: April 16, 2024 Dr. Tammy Mejia MD Attending Provider Active Start: April 16, 2024 End: April 16, 2024 Dr. Tammy Mejia MD Referring Provider Active Start: April 16, 2024 End: April 16, 2024 Team Status: Inactive Member Role Status Dates Dr. Tammy Mejia MD Primary Care Provider Active Start: April 19, 2024 End: April 19, 2024 Dr. Tammy Mejia MD Referring Provider Active Start: April 19, 2024 End: April 19, 2024 Dr. Cesar Moss MD Attending Provider Active Sta rt: April 19, 2024 End: April 19, 2024 Team Status: Inactive Member Role Status Dates Dr. Tammy Mejia MD Primary Care Provider Active Start: May 09, 2024 End: May 09, 2024 Dr. Tammy Mejia MD Attending Provider Active Start: May 09, 2024 End: May 09, 2024 Dr. Tammy Mejia MD Referring Provider Active Start: May 09, 2024 End: May 09, 2024 Team Status: Inactive Member Role Status Dates Dr. Tammy Mejia MD Primary Care Provider Active Start: May 30, 2024 End: May 30, 2024 Dr. Cesar Moss MD Attending Provider Active Sta rt: May 30, 2024 End: May 30, 2024 Dr. Cesar Moss MD Referring Provider Active Sta rt: May 30, 2024 End: May 30, 2024 Team Status: Inactive Member Role Status Dates Dr. Tammy Mejia MD Primary Care Provider Active Start: July 09, 2024 End: July 09, 2024 Dr. Cesar Moss MD Attending Provider Active Sta rt: July 09, 2024 End: July 09, 2024 Team Status: Inactive Member Role Status Dates Dr. Tammy Mejia MD Primary Care Provider Active Start: July 11, 2024 End: July 11, 2024 Dr. Tammy Mejia MD Referring Provider Active Start: July 11, 2024 End: July 11, 2024 Dr. Cesar Moss MD Attending Provider Active Sta rt: July 11, 2024 End: July 11, 2024 INFORMATION SOURCE (unrecogn ized section and content) DATE CREATED AUTHOR 09/20/2023 [facility] ([place]) DATE CREATED AUTHOR AUTHOR'S ORGANIZ ATION 08/29/2024 [facility] DATE CREATED AUTHOR AUTHOR'S ORGANIZ ATION 10/04/2024 [facility] Goals (unrecognized section and content) Goals may be documented in a n alternate section FOR RECORDS PERTAINING TO PATIENTS WHO ARE OR HAVE BEEN ENROLLED IN A CHEMICAL DEPENDENCY/SUBSTANCEABUSE PROGRAM, SOME INFORMATION MAY BE OMITTED. This clinical summary was aggregated from multiple sources. Caution should be exercised in using it in the provision of clinical care. This summary normalizes information from multiple sources, and as a consequence, information in this document may materially change the coding, format and clinical context of patient data. In addition, data may be omitted in some cases. CLINICAL DECISIONS SHOULD BE BASED ON THE PRIMARY CLINICAL RECORDS. [facility] [facility] provides no warranty or guarantee of the accuracy or completeness of information in this document.
[2024-10-17 13:13] LABS: Free T3 3.1 pg/mL (2.18-3.98)
== END | disposition home or self-care (01) ==
LOC: BIMLAB 09:45
PROVIDERS: PCP Family Medicine; Referring Provider Internal Medicine Endocrinology, Diabetes & Metabolism; Visit Provider Internal Medicine Endocrinology, Diabetes & Metabolism
DX: E05.00 Thyrotoxicosis with diffuse goiter without thyrotoxic crisis or storm (principal)
CPT/HCPCS: 36415; 84439; 84443; 84481

== ENCOUNTER → 2024-12-26 | Outpatient (CLI) | payer BC, SELFPAY ==
[2024-12-26 13:20] LABS: Free T3 3.3 pg/mL (2.18-3.98)
== END | disposition home or self-care (01) ==
LOC: MTLAB 09:49
PROVIDERS: PCP Family Medicine; Referring Provider Internal Medicine Endocrinology, Diabetes & Metabolism; Visit Provider Internal Medicine Endocrinology, Diabetes & Metabolism
DX: E05.00 Thyrotoxicosis with diffuse goiter without thyrotoxic crisis or storm (principal)
CPT/HCPCS: 36415; 84439; 84443; 84481

== ENCOUNTER → 2025-03-04 | Outpatient (CLI) | payer BC, SELFPAY ==
[2025-03-04 13:05] LABS: Free T3 3.1 pg/mL (2.18-3.98)
== END | disposition home or self-care (01) ==
LOC: MTLAB 09:38
PROVIDERS: PCP Family Medicine; Referring Provider Internal Medicine Endocrinology, Diabetes & Metabolism; Visit Provider Internal Medicine Endocrinology, Diabetes & Metabolism
DX: E05.00 Thyrotoxicosis with diffuse goiter without thyrotoxic crisis or storm (principal)
CPT/HCPCS: 36415; 84439; 84443; 84481

== ENCOUNTER → 2025-04-21 | Outpatient (CLI) | payer BC, SELFPAY ==
[2025-04-21 15:54] LABS: Free T3 3.2 pg/mL (2.18-3.98)
--- OUTSIDE RECORDS SUMMARY | 2025-04-21 18:52 | XMS RPT_ITS | CCD ---
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 Tammy Paul Primary Care Provider Dr. Bijan De La Paz DO Attending Provider Dr. Bijan De La Paz DO Emergency Provider Dr. Tammy Mejia MD Attending Provider Dr. Tammy Mejia MD Referring Provider Dr. Cesar Moss MD Attending Provider Dr. Cesar Moss MD Referring Provider Dr. Tammy Mejia MD Primary Care Provider Dr. Cesar Moss MD Attending Provider Dr. Tammy Mejia MD Referring Provider Dr. Cesar Moss MD Referring Provider MABEL HALL DO Attending Cherelle MEJIA MD, DR MONAE Primary Care Cherelle MEJIA MD, DR MONAE Primary Care Cherelle ELKINS MD, STEVIE Attending Dr. Tammy Gatica MD Primary Care Provider Dr. Cesar Moss MD Attending Provider Dr. Cesar Moss MD Referring Provider Dr. Tammy Mejia MD Referring Provider Tammy Mejia Primary Care Unavailable Ajay, Cesar Attending Unavailable Ajay, Cesar Referring Unavailable Jolliff, Tammy S Primary Care Unavailable Ana CristinaBijan Attending Unavailable Jolliff, Tammy S Attending Unavailable Jolliff, Tammy S Referring Unavailable Jolliff, Tammy S Primary Care Unavailable Ana, Jacquelynon Primary Care Unavailable Ajay, Cesar Referring Unavailable Ajay, Cesar Attending Unavailable Jolliff, Tammy S Primary Care Unavailable Ajay, Cesar Referring Unavailable Ajay, Cesar Attending Unavailable Jolliff, Tammy S Referring Unavailable Jolliff, Tammy S Primary Care Unavailable Ajay, Cesar Attending Unavailable Jolliff, Tammy S Referring Unavailable Jolliff, Tammy S Primary Care Unavailable Ajay, Ceasr Attending Unavailable Ajay, Cesar Attending Unavailable Jolliff, Tammy S Referring Unavailable Jolliff, Tammy S Primary Care Unavailable Jolliff, Tammy S Primary Care Unavailable Ajay, Ecsar Referring Unavailable Ajay, Cesar Attending Unavailable Jolliff, Tammy S Primary Care Unavailable Ajay, Cesar Referring Unavailable Ajay, Cesar Attending Unavailable Ajay, Cesar Attending Unavailable Jolliff, Tammy S Primary Care Unavailable Jolliff, Tammy S Primary Care Unavailable Jolliff, Tammy S Attending Unavailable Jolliff, Tammy S Referring Unavailable Jolliff, Tammy S Attending Unavailable Jolliff, Tammy S Primary Care Unavailable Jolliff, Tammy S Referring Unavailable Allergies Allergy Classification Reported Allergen(s) Allergy Type Date of Onset Reaction(s) Facility (8 sources) Naproxen; Translations: [naproxen] Drug Allergy 5 facial swelling, hives, Swelling [facility] Comment on above: facial swelling, hiv es (1 source) Naproxen Drug Allergy 5 [facility] Repository Medications Current Medications Medication Drug Class(es) Dates Sig (Normalized) Sig (Original) Zyrtec (6 sources) Histamine-1 Receptor Antagonist Start: 09-04-2024 ZyrTEC [...] Status: Ordered methIMAzole 10 mg oral tablet (15 sources) Thyroid Hormone Synthesis Inhibitor Start: 12-31-2024 take 0.5 tablet by mouth once daily Methimazole 10 mg tablet Active 10 mg PO .qd, Mon & Fri 1/2 t 90 December 31, 2024 9:06am Start: 08-13-2024 End: 12-31-2024 take 1 tablet by mouth once daily Methimazole 10 mg tablet Discontinued 10 mg PO daily 135 August 22, 2024 3:05pm December 31, 2024 9:07am Start: 07-11-2024 End: 08-22-2024 Methimazole 10 mg tablet Discontinued 15 mg PO daily 135 July 11, 2024 10:12am August 22, 2024 3:05pm Start: 04-19-2024 End: 07-11-2024 take 2 tablets by mouth once daily Methimazole 10 mg tablet Discontinued 20 mg PO daily 60 3 April 19, 2024 1:00am July 11, 2024 [...] as provided by your GI provider at [place] # 1 EA, 0 Refill(s), Pharmacy: [id number], 160, cm, 09/04/24 15:02:00 EDT, Height, kg, 09/04/24 15:02:00 EDT, Dosing Weight Start Date: 09/04/24 Status: Ordered Quantity: 1.0 Unit: EA Repeat number: 1 Completed/Discontinued Medications Medication Drug Class(es) Dates Sig (Normalized) Sig (Original) atenolol 25 mg oral tablet (8 sources) beta-Adrenergic Juanito Start: 03-30-2024 End: 07-11-2024 take 1 tablet by mouth once daily Atenolol 25 mg tablet Discontinued 25 mg PO DAILY April 19, 2024 3:16pm July 11, 2024 9:53am nitrofurantoin, macrocrystals 25 mg / nitrofurantoin, monohydrate 75 mg oral capsule (4 sources) Nitrofuran Antibacterial Start: 11-03-2023 End: 11-10-2023 take 1 capsule by mouth every twelve hours at mealtime Nitrofurantoin Monohyd/M-Cryst 100 mg capsule Discontinued 1 NMA PO Q12H 14 7 0 November 03, 2023 12:00am November 09, 2023 12:00am November 10, 2023 12:06am administer with a meal/food; swallow whole; do not open, crush, dissolve , or chew predniSONE 10 mg oral tablet (4 sources) Start: 05-07-2022 End: 05-22-2022 Prednisone 10 mg tablet Discontinued 10 mg PO .COMPLEX 35 15 0 May 07, 2022 1:00am May 21, 2022 1:00am May 22, 2022 1:04am 10 mg orally; 40mg x5 days, 20mg x5 days, 10mg x5 days Problems Active Problems Problem Classification Problem Date Documented Date Episodic/Chronic Allergic reactions (4 sources) Acute dermatitis; Translations: [Dermatitis, unspecified] 05-07-2022 Episodic Essential hypertension (2 sources) Essential (primary) hypertension; Translations: [Essential (primary) hypertension] Onset: 08-08-2023 Chronic Other nutritional; endocrine; and metabolic disorders (2 sources) Body mass index (BMI) 31.0-31.9, adult; Translations: [Body mass index [BMI] 31.0-31.9, adult] Onset: 08-08-2023 Chronic Thyroid disorders (11 sources) Thyrotoxicosis due to Graves' disease; Translations: [Thyrotoxicosis with diffuse goiter without thyrotoxic crisis or storm] Onset: 05-17-2024 07-11-2024 Chronic Past or Other Problems Problem Classification Problem Date Documented Da te Episodic/Chronic Cardiac dysrhythmias (1 source) Palpitations; Translations: [Palpitations] Onset: 05-06-2024 Episodic Other screening for suspected conditions (not mental disorders or infectious disease) (5 sources) Encounter for screening mammogram for malignant neoplasm of breast; Translations: [Encounter for other screening for malignant neoplasm of breast] Onset: 08-08-2023 Episodic Results Test Name Value Interpretation Reference Range Facility Free T3on 03-04-2025 Free T3 [Mass/Vol] 3.1 pg/mL Normal 2.18-3.98 [facility] Comment on above: Performed By: #### L 501.11506, L501.9520, L506.0400 #### [facility] [address] [place], [address] T4 Free Directon 03-04-2025 T4 FREE DIRECT 1.00 ng/dL Normal 0.76-1.46 [facility] Comment on above: Performed By: #### L 501.12065, L501.9520, L506.0400 #### [facility] [address] [place], [address] Thyroid Stim Hormone (TSH)on 03-04-2025 TSH 2.800 uIU/mL Normal 0.300-4.200 [facility] Comment on above: Performed By: #### L 501.82215, L501.9520, L506.0400 #### [facility] [address] [place], [address] Endocrinology Visit Reporton 12-31-2024 Endocrinology Visit Report [facility] [address] [facility] [place] [address] OFFICE VISIT Date of Service: 12/31/24 MR#: [id number] Acct: [id number] Name: JAVAD OLEARY Rep #: [id number] : 1975 Provider: Bob Mcgregor Age/Sex: 49/F [place] [facility] [place]: Signed Intake Vital Signs 07/11/24 09:51 12/31/24 08:50 Height 5 ft 3 in 5 ft 3 in Weight: 185 lb 185 lb BMI 32.8 32.8 BP 125/83 H 141/79 H Blood Pressure Location Rt brachial Lt brachial Position Sitting Sitting Pulse 78 84 Pulse Source Monitor Monitor Pulse Oximetry (%) 96 98 Oxygen Delivery Method room air room air Intake Visit Reasons: 6 M FU Chief Complaint: Thyroid Operating Systems Specialist Required: No Accompanied by: Self Is patient in pain?: No Allergies naproxen Allergy (Verified 12/31/24 08:49) Swelling Medications ???Medication ???Instructions ???Recorded ???Confirmed ???Type cetirizine 10 mg tablet (24Hour 10 mg PO DAILY PRN allergy symptom s 03/30/24 12/31/24 History Allergy) methimazole 10 mg tablet 10 mg PO .qd, 05/02 t #90 12/31/24 12/31/24 Rx tabs PFSH Medical History Thyrotoxicosis due [...] Complaint: Thyroid Details: JAVAD OLEARY, is a 49 F who presents to the office today for follow up. 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 She is taking 10 mg of methimazole, she is tolerating it well. TSH is 4.4 ROS Const Constitutional: No fatigue, weakness, weight change or change in appetite Eyes Eyes: No change in vision ENT ENT: No hearing loss, nasal congestion or difficulty swallowing Cardio Cardiology: No chest pain at rest, chest pain with exertion or shortness of breath Musc Musculoskeletal: No numbness Neuro Neurology: No weakness, memory loss or numbness Psych Psychiatric: No change in appetite, No memory loss and No Thoughts of harming yourself/Others Resp Respiratory: No cough or chest congestion Gastro GI: No difficulty swallowing Genitourinary-Female: No burning urination Skin [...] normal visual inspection Neck mass: No Thyroid: thyroid normal Carotids: no bruits Lymphatic: no lymphadenopathy noted Chest Chest palpation inspection: normal inspection of the chest Resp Effort Inspection: normal respiratory effort, able to speak in complete sentences, symmetric chest movement, no audible wheezes and no cough Auscultation: Bilateral: Clear to Auscultation Cardio Rate: regular rate Rhythm: regular rhythm Pulses: posterior tibial pulses present GI Inspection: normal to inspection Auscultation: normal bowel sounds Palpation: soft and no hepatosplenomegaly Skin General: no rashes or lesions noted [...] Plan (1) Thyrotoxicosis due to Graves' disease: Sta (more content not included)... Normal [facility] Free T3on 12-26-2024 Free T3 [Mass/Vol] 3.3 pg/mL Normal 2.18-3.98 [facility] Comment on above: Performed By: #### L 501.34988, L501.9520, L506.0400 #### [facility] [address] [place], [address] Free [id number] By: Cesar Moss on 12-26-2024 Free T3 [Mass/Vol] 3.3 pg/mL 2.18-3.98 [facility] T4 Free Directon 12-26-2024 T4 FREE DIRECT 1.00 ng/dL Normal 0.76-1.46 [facility] Comment on above: Performed By: #### L 501.39555, L501.9520, L506.0400 #### [facility] [address] [place], [address] T4 freeOrdered By: Cesar Moss on 12-26-2024 Free T4 [Mass/Vol] 1.00 ng/dL 0.76-1.46 [facility] TSH DL <= 0.005 mIU/L QnOrde red By: Cesar Moss on 12-26-2024 TSH Qn 4.420 uIU/mL High 0.300-4.200 [facility] Thyroid Stim Hormone (TSH)on 12-26-2024 TSH 4.420 uIU/mL High 0.300-4.200 [facility] Comment on above: Performed By: #### L 501.04402, L501.9520, L506.0400 #### [facility] [address] [place], [address] Free T3on 10-17-2024 Free T3 [Mass/Vol] 3.1 pg/mL Normal 2.18-3.98 [facility] Comment on above: Performed By: #### L 501.22235, L501.9520, L506.0400 #### [facility] [address] [place], [address] Free [id number] By: Cesar Moss on 10-17-2024 Free T3 [Mass/Vol] 3.1 pg/mL 2.18-3.98 [facility] T4 Free Directon 10-17-2024 T4 FREE DIRECT 1.00 ng/dL Normal 0.76-1.46 [facility] Comment on above: Performed By: #### L 501.59261, L501.9520, L506.0400 #### [facility] [address] [place], [address] T4 freeOrdered By: Cesar Moss on 10-17-2024 Free T4 [Mass/Vol] 1.00 ng/dL 0.76-1.46 [facility] TSH DL <= 0.005 mIU/L QnOrde red By: Cesar Moss on 10-17-2024 TSH Qn 2.830 uIU/mL 0.300-4.200 [facility] Thyroid Stim Hormone (TSH)on 10-17-2024 TSH 2.830 uIU/mL Normal 0.300-4.200 [facility] Comment on above: Performed By: #### L 501.11426, L501.9520, L506.0400 #### [facility] [address] [place], [address] MA MAMMOGRAM SCREENING BILAT ERAL W/TOMOon 09-10-2024 MA MAMMOGRAM SCREENING BILATERAL W/JERAMY ORIGINAL FROM: [facility] [address] [address] PROCEDURE FOR: JAVAD OLEARY [address] [place] [address] Home: PID#: [id number] Exam#: [id number] : 1975 Age: 48 TO: STEVIE ELKINS MD [address] [facility] [place], [place] [address] Fax: NO FAX EXAMINATION: SCREENING DIGITAL BILATERAL [...] screening with annual mammograms is recommended. Rashmi Morel risk calculations, generated with the history provided, [...] addition to annual mammographic screening per the [employer]. BIRADS: MAMMOGRAM BI-RADS: 1: Negative RECALL: 1 year screening RECALL TYPE: mammo LETTER SENT: Normal BI-RADS 1 and 2 Interpreted by: Stacia Berry Preliminary Report By: Stacia Berry Electronically signed By Stacia Berry Dictated Date: 09/10/2024 10:39:49 PM Prelim Date: 09/10/2024 10:43:07 PM Sign Date: 09/10/2024 10:43:07 PM Ordering Provider: STEVIE ELKINS Chairman Of The Board: KODI SERRATO(R)(M)(CT) letter sent: Normal BI-RADS 1 and 2 Mammogram BI-RADS: 1 Negative Normal [facility] Free T3on 08-22-2024 Free T3 [Mass/Vol] 3.2 pg/mL Normal 2.18-3.98 [facility] Comment on above: Performed By: #### L 501.34214, L501.9520, L506.0400 #### [facility] [address] [place], [address] Free [id number] By: Cesar Moss on 08-22-2024 Free T3 [Mass/Vol] 3.2 pg/mL 2.18-3.98 [facility] T4 Free Directon 08-22-2024 T4 FREE DIRECT 0.80 ng/dL Normal 0.76-1.46 [facility] Comment on above: Performed By: #### L 501.78661, L501.9520, L506.0400 #### [facility] [address] [place], [address] T4 freeOrdered By: Cesar Moss on 08-22-2024 Free T4 [Mass/Vol] 0.80 ng/dL 0.76-1.46 [facility] TSH DL <= 0.005 mIU/L QnOrde red By: Cesar Moss on 08-22-2024 TSH Qn 5.360 uIU/mL High 0.300-4.200 [facility] Thyroid Stim Hormone (TSH)on 08-22-2024 TSH 5.360 uIU/mL High 0.300-4.200 [facility] Comment on above: Performed By: #### L 501.40606, L501.9520, L506.0400 #### [facility] [address] [place], [address] Endocrinology Visit Reporton 07-11-2024 Endocrinology Visit Report [facility] [address] [facility] [place], [place] [address] OFFICE VISIT Date of Service: 07/11/24 MR#: [id number] Acct: [id number] Name: JAVAD OLEARY Rep #: [id number] : 1975 Provider: Bob Mcgregor Age/Sex: 48/F [place] [facility] [place]: Signed Intake Vital Signs 04/19/24 13:23 [...] alternative therapies (more content not included)... Normal [facility] Free T3on 07-09-2024 Free T3 [Mass/Vol] 2.6 pg/mL Normal 2.18-3.98 [facility] Comment on above: Performed By: #### L 501.52671, L501.9520, L506.0400 #### [facility] [address] [place], [address] Free T0Pjsnvmv By: Cesar Moss on 07-09-2024 Free T3 [Mass/Vol] 2.6 pg/mL 2.18-3.98 [facility] Free Triiodothyronine (T3) pg/dL 2.6 pg/mL 2.18-3.98 [facility] T4 Free Directon 07-09-2024 T4 FREE DIRECT 0.60 ng/dL Low 0.76-1.46 [facility] Comment on above: Performed By: #### L 501.75771, L501.9520, L506.0400 #### [facility] [address] [place], [place], [address] T4 freeOrdered By: Cesar Moss on 07-09-2024 Free T4 [Mass/Vol] 0.60 ng/dL Low 0.76-1.46 [facility] TSH DL <= 0.005 mIU/L QnOrde red By: Cesar Moss on 07-09-2024 Thyroid Stimulating Hormone (TSH) 4.290 uIU/mL High 0.300-4.200 [facility] TSH Qn 4.290 uIU/mL High 0.300-4.200 [facility] Thyroid Stim Hormone (TSH)on 07-09-2024 TSH 4.290 uIU/mL High 0.300-4.200 [facility] Comment on above: Performed By: #### L 501.28907, L501.9520, L506.0400 #### [facility] [address] [place], [place], [address] Direct serum free thyroxine (FT4) measurementOrdered By: Cesar Moss on 05-30-2024 Free T4 [Mass/Vol] 1.05 ng/dL 0.76-1.46 [facility] Free T3on 05-30-2024 Free T3 [Mass/Vol] 3.3 pg/mL Normal 2.18-3.98 [facility] Comment on above: Performed By: #### L 501.79115, L501.9520, L506.0400 #### [facility] [address] [place], [place], [address] Free [id number] By: Cesar Moss on 05-30-2024 Free Triiodothyronine (T3) pg/dL 3.3 pg/mL 2.18-3.98 [facility] T4 Free Directon 05-30-2024 T4 FREE DIRECT 1.05 ng/dL Normal 0.76-1.46 [facility] Comment on above: Performed By: #### L 501.61253, L501.9520, L506.0400 #### [facility] [address] [place], [place], [address] TSH QnOrdered By: Cesar Moss on 05-30-2024 Thyroid Stimulating Hormone (TSH) < 0.005 uIU/mL Low 0.358-3.740 [facility] Thyroid Stim Hormone (TSH)on 05-30-2024 TSH Qn m[IU]/L Low 0.358-3.740 [facility] Comment on above: Performed By: #### L 501.19910, L555.9520, L506.0400 #### [facility] [address] [facility] [place], [address] Thyroid Peroxidase ABon 05-01-2024 THYR PEROX AB 10 IU/mL Normal 0-34 [facility] Comment on above: Result Comment: Perf ormed at: - [facility] [address] [id number] Stock Manager: Shaka Sullivan PhD, Phone: [phone] Performed By: #### L 501.42109, L573.1020, L506.0400 #### [facility] [address] [facility] [place], [place], [address] Direct serum free thyroxine (FT4) measurementOrdered By: Cesar Moss on 05-09-2024 Free T4 [Mass/Vol] 1.71 ng/dL High 0.76-1.46 [facility] Free T3on 05-09-2024 Free T3 [Mass/Vol] 5.7 pg/mL High 2.18-3.98 [facility] Comment on above: Performed By: #### L 501.91926, L5019520, L506.0400 #### [facility] [address] [place], [place], [address] Free [id number] By: Cesar Moss on 05-09-2024 Free Triiodothyronine (T3) pg/dL 5.7 pg/mL High 2.18-3.98 [facility] T4 Free Directon 05-09-2024 T4 FREE DIRECT 1.71 ng/dL High 0.76-1.46 [facility] Comment on above: Performed By: #### L 501.76631, L501.9520, L506.0400 #### [facility] [address] [place], [place], [address] TPO Ab QnOrdered By: Cesar valencia on 05-09-2024 Thyroid Peroxidase Antibodies 10 IU/mL 0-34 [facility] Comment on above: Performed at: [address] [id number] Director: Shaka Sullivan PhD, Phone: [phone] TSH QnOrdered By: Cesar Moss on 05-09-2024 Thyroid Stimulating Hormone (TSH) < 0.005 uIU/mL Low 0.358-3.740 [facility] Thyroid Stim Hormone (TSH)on 05-09-2024 TSH Qn m[IU]/L Low 0.358-3.740 [facility] Comment on above: Performed By: #### L 501.35435, L501.9520, L506.0400 #### [facility] [address] [place], [place], [address] Endocrinology Visit Reporton 04-19-2024 Endocrinology Visit Report [facility] [address] [facility] [place], [place] [address] OFFICE VISIT Date of Service: 04/19/24 MR#: [id number] Acct: [id number] Name: JAVAD OLEARY Rep #: [id number] : 1975 Provider: Bob Mcgregor Age/Sex: 48/F [place] [facility] [place]: Signed Intake Vital Signs 03/30/24 02:24 04/19/24 13:23 Height 5 ft 3 in 5 ft 3 in Weight: 174 lb BMI 30.8 BP 144/66 H Blood Pressure Location Lt brachial Position Sitting Pulse 116 H Pulse Source Monitor Pulse Oximetry (%) 97 Oxygen Delivery Method room air Intake Visit Reasons: Hyperthyroid Chief Complaint: Thyroid Operating Systems Specialist Required: No Accompanied by: Self Is patient [...] nourished Orientation: alert, awake and oriented x3 HENWA Head: normal to inspection Ears: hearing grossly [...] written li (more content not included)... Normal [facility] Thyroid Image Quant Measureo n 04-16-2024 Thyroid Image Quant Measure [facility] Services [address] [place], [place] [address] Thyroid Image Quant Measure MR#: [id number] Acct: [id number] Name: JAVAD OLEARY Rep #: [id number] : 1975 F 48 From: Joseluis Neumann PCP: Dr. Tammy Mejia MD Status: REG CLI Study: Thyroid Image Quant Measure Date of Exam: Exam# [id number] Ordering Dr: Tammy Mejia [place] [id number] CLINICAL: 48-year-old female with history of clinical [...] Signed: Joseluis Garcia DO at 12:42 EST , CC: Dr. Tammy Mejia MD Sole Blacker: Signed Normal [facility] Thyroidon 04-09-2024 Thyroid [facility] Services [address] [place] [address] Thyroid MR#: [id number] Acct: [id number] Name: JAVAD OLEARY Rep #: [id number] : 1975 F 48 From: João Alfred MD PCP: Dr. Tammy Mejia MD Status: REG CLI Study: Thyroid Date of Exam: 04/09/24 Exam# [id number] Ordering Dr: Tammy Mejia [place] [id number] STUDY: THYROID ULTRASOUND REASON FOR EXAM: Female, [...] EST , CC: Dr. Tammy Mejia MD Sole Blacker: Signed Normal [facility] 12 Lead EKGon 03-30-2024 12 Lead EKG [facility] Cardi[facility] Services [address] [place] [address] 12 Lead EKG 03/30/24 0233 MR#: [id number] Acct: [id number] Name: JAVAD OLEARY Rep #: [id number] : 1975 48 From: Valente Dangelo MD [...] abnormality Abnormal ECG Confirmed by Valente Dangelo ([id number]), magazine editor SHANE GARNER ([id number]) on 04/01/2024 11:33:50 AM Referred By: ANA CRISTINA Confirmed By: Valente Dangelo 04/01/24 1133 Date Valente Dangelo MD CC: Dr. Tammy Mejia MD; Dr. Bijan De La Paz DO Signed Normal [facility] Basic Metabolic Profile (BMP )on 03-30-2024 BUN/CRE 23.1 RATIO High 10-20 [facility] Comment on above: Order Comment: 1 Y Performed By: #### L 500.2500, L506.0400, L501.43900, L501.9520, L501.5425, L300.8000, L100.0500 #### [facility] [address] [place], [address] CA,Total 9.2 mg/dL Normal 8.5-10.1 [facility] Comment on above: Order Comment: 1 Y Performed By: #### L 500.2500, L506.0400, L501.13463, L501.9520, L501.5425, L300.8000, L100.0500 #### [facility] [address] [place], [address] Chloride [Moles/Vol] 105 mmol/L Normal 98-107 [facility] Comment on above: Order Comment: 1 Y Performed By: #### L 500.2500, L506.0400, L501.91195, L501.9520, L501.5425, L300.8000, L100.0500 #### [facility] [address] [place], [address] CO2 [Moles/Vol] 24.0 mmol/L Normal 21.0-32.0 [facility] Comment on above: Order Comment: 1 Y Performed By: #### L 500.2500, L506.0400, L501.32202, L501.9520, L501.5425, L300.8000, L100.0500 #### [facility] [address] [place], [address] Creatinine [Mass/Vol] 0.60 mg/dL Normal 0.55-1.02 [facility] Comment on above: Order Comment: 1 Y Result Comment: The validity of the calculated GFR GFRAA in patients over 70 years has not been determined. Clinical correlation is essential. Performed By: #### L 500.2500, L506.0400, L501.88244, L501.9520, L501.5425, L300.8000, L100.0500 #### [facility] [address] [place], [address] ECRCL 111.51 ml/min Normal [facility] Comment on above: Order Comment: 1 Y Performed By: #### L 500.2500, L506.0400, L501.76318, L501.9520, L501.5425, L300.8000, L100.0500 #### [facility] [address] [place], [address] EST GFR - AA 136 mL/min Normal >60 [facility] Comment on above: Order Comment: 1 Y Result Comment: Afri can [place] GFR Calc Performed By: #### L 500.2500, L506.0400, L501.61264, L501.9520, L501.5425, L300.8000, L100.0500 #### [facility] [address] [place], [place], [address] GAP 9 Normal 5-15 [facility] Comment on above: Order Comment: 1 Y Performed By: #### L 500.2500, L506.0400, L501.41241, L501.9520, L501.5425, L300.8000, L100.0500 #### [facility] [address] [place], [place], [id number] (335 GFR/1.73 sq M.predicted among non-blacks MDRD (S/P/Bld) [Vol rate/Area] 112 mL/min/{1.73_m2} Normal >60 [facility] Comment on above: Order Comment: 1 Y Result Comment: Non- GFR Calc Performed By: #### L 500.2500, L506.0400, L501.96785, L501.9520, L501.5425, L300.8000, L100.0500 #### [facility] [address] [place], [address] Glucose [Mass/Vol] 120 mg/dL High 74-106 [facility] Comment on above: Order Comment: 1 Y Result Comment: Fast ing Glucose result from 100 to 125 mg/dL suggests IMPAIRED HOMEOSTASIS per A.D.A. criteria. Performed By: #### L 500.2500, L506.0400, L501.78540, L501.9520, L501.5425, L300.8000, L100.0500 #### [facility] [address] [place], [address] Potassium [Moles/Vol] 3.9 mmol/L Normal 3.5-5.1 [facility] Comment on above: Order Comment: 1 Y Result Comment: Mode rate Hemolysis, Result may be falsely increased. Performed By: #### L 500.2500, L506.0400, L501.01662, L501.9520, L501.5425, L300.8000, L100.0500 #### [facility] [address] [place], [address] Sodium [Moles/Vol] 138 mmol/L Normal 136-145 [facility] Comment on above: Order Comment: 1 Y Performed By: #### L 500.2500, L506.0400, L501.26017, L501.9520, L501.5425, L300.8000, L100.0500 #### [facility] [address] [place], [address] Urea nitrogen [Mass/Vol] 14 mg/dL Normal 7-18 [facility] Comment on above: Order Comment: 1 Y Performed By: #### L 500.2500, L506.0400, L501.16130, L501.9520, L501.5425, L300.8000, L100.0500 #### [facility] [address] [place], [address] Blood urea nitrogen (BUN)/cr eatinine ratioOrdered By: Bijan De La Paz on 03-30-2024 Urea nitrogen/Creatinine [Mass ratio] 23.1 mg/mg High 02-17 [facility] CBC-Complete Blood Cnt No Di ffon 03-30-2024 Erythrocyte distribution width (RBC) [Ratio] 12.0 % Normal 11.6-14.6 [facility] Comment on above: Performed By: #### L 500.2500, L506.0400, L501.03301, L501.9520, L501.5425, L300.8000, L100.0500 #### [facility] [address] [place], [address] Hematocrit (Bld) [Volume fraction] 40.7 % Normal 37-47 [facility] Comment on above: Performed By: #### L 500.2500, L506.0400, L501.54992, L501.9520, L501.5425, L300.8000, L100.0500 #### [facility] [address] [place], [address] Hemoglobin (Bld) [Mass/Vol] 13.5 g/dL Normal 12.0-15.0 [facility] Comment on above: Performed By: #### L 500.2500, L506.0400, L501.51695, L501.9520, L501.5425, L300.8000, L100.0500 #### [facility] [address] [place], [address] MCH (RBC) [Entitic mass] 29.7 pg Normal 27.0-32.0 [facility] Comment on above: Performed By: #### L 500.2500, L506.0400, L501.91385, L501.9520, L501.5425, L300.8000, L100.0500 #### [facility] [address] [place], [address] MCHC (RBC) [Mass/Vol] 33.2 g/dL Normal 32-36 [facility] Comment on above: Performed By: #### L 500.2500, L506.0400, L501.66291, L501.9520, L501.5425, L300.8000, L100.0500 #### [facility] [address] [place], [address] MCV (RBC) [Entitic vol] 89.5 fL Normal 81-99 [facility] Comment on above: Performed By: #### L 500.2500, L506.0400, L501.53418, L501.9520, L501.5425, L300.8000, L100.0500 #### [facility] [address] [place], [address] Platelet mean volume (Bld) [Entitic vol] 8.4 fL Normal 6.2-12.0 [facility] Comment on above: Performed By: #### L 500.2500, L506.0400, L501.88527, L501.9520, L501.5425, L300.8000, L100.0500 #### [facility] [address] [place], [address] Platelets (Bld) [#/Vol] 389 10*3/uL Normal 150-450 [facility] Comment on above: Performed By: #### L 500.2500, L506.0400, L501.91798, L501.9520, L501.5425, L300.8000, L100.0500 #### [facility] [address] [place], [address] RBC (Bld) [#/Vol] 4.55 10*6/uL Normal 4.2-5.4 [facility] Comment on above: Performed By: #### L 500.2500, L506.0400, L501.47228, L501.9520, L501.5425, L300.8000, L100.0500 #### [facility] [address] [place], [address] RDW SD 39.1 fl Normal 35.1-43.9 [facility] Comment on above: Performed By: #### L 500.2500, L506.0400, L501.97968, L501.9520, L501.5425, L300.8000, L100.0500 #### [facility] [address] [place], [address] WBC (Bld) [#/Vol] 8.6 10*3/uL Normal 4.4-11.0 [facility] Comment on above: Performed By: #### L 500.2500, L506.0400, L501.82252, L501.9520, L501.5425, L300.8000, L100.0500 #### [facility] [address] [place], [address] Carbon dioxide measurementOr dered By: Bijan De La Paz on 03-30-2024 CO2 [Moles/Vol] 24.0 mmol/L 21.0-32.0 [facility] Chest 1 View (Portable)on Chest 1 View (Portable) [facility] Imaging Services [address] [facility] [place] [address] Chest 1 View (Portable) MR#: [id number] Acct: [id number] Name: JAVAD OLEARY Rep #: [id number] : 1975 F 48 From: Pedrito Lloyd MD PCP: Dr. Tammy Mejia MD Status: REG ER Study: Chest 1 View (Portable) Date of Exam: 03/30/24 Exam# [id number] Ordering Dr: Bijan De La Paz DO [id number] INDICATION: Tachycardia EXAMINATION/TECHNIQUE: X-RAY - XR Chest [...] MD; Dr. Bijan De La Paz DO Sole Blacker: Signed Normal [facility] Chloride measurementOrdered By: Bijan De La Paz on 03-30-2024 Chloride [Moles/Vol] 105 mmol/L 98-107 [facility] D-Dimer Quantitative (DVT/PE )on 03-30-2024 D-DIMER QUANT 0.29 FEU/ug/m Normal 0.27-0.49 [facility] Comment on above: Result Comment: NORM AL D-Dimer level (<0.50) indicates no DVT or PE. Performed By: #### L 500.2500, L506.0400, L501.94378, L501.9520, L501.5425, L300.8000, L100.0500 #### [facility] [address] [facility] [place], [place], [id number] D-dimer measurement for deep venous thrombosisOrdered By: Bijan De La Paz on 03-30-2024 D-Dimer Quantitative (PE/DVT) 0.29 FEU/ug/m 0.27-0.49 [facility] Comment on above: NORMAL D-Dimer level (<0.50) indicates no DVT or PE. Direct serum free thyroxine (FT4) measurementOrdered By: Bijan De La Paz on 03-30-2024 Free T4 [Mass/Vol] 2.26 ng/dL High 0.76-1.46 [facility] Emergency Department Summary on 03-30-2024 Emergency Department Summary [facility] Medical Records Department [address] [place] [address] Emergency Department Summary 03/30/24 MR#: [id number] Acct: [id number] Name: JAVAD OLEARY Rep #: [id number] : 1975 48 From: Bijan De La [...] Oxygen Delivery Method Room Air Room Air MDM MDM MDM Narrative Medical decision making narrative: HISTORY OF [...] reviewed, Vital signs reviewed Constitutional: please see mdm HENT: MMM Eyes: Pupils equal round and [...] drugs History obtained from others: Consults: none [facility] Narrative: The patient was initially hypertensive with [...] edema, pneumothorax, (more content not included)... Normal [facility] Erythrocyte distribution wid th ratioOrdered By: Bijan De La Paz on 03-30-2024 Erythrocyte distribution width (RBC) [Ratio] 12.0 % 11.6-14.6 [facility] Erythrocyte distribution wid th standard deviationOrdered By: Bijan De La Paz on 03-30-2024 Erythrocyte distribution width (RBC) [Entitic vol] 39.1 fL 35.1-43.9 [facility] Estimated glomerular filtrat ion rate (GFR) AmericanOrdered By: Bijan De La Paz on 03-30-2024 Estimated GFR (MDRD) Amer 136 mL/min >60 [facility] Comment on above: GFR Calc Estimation of creatinine jey aranceOrdered By: Bijan De La Paz on 03-30-2024 Estimated Creatinine Clearance Calc 111.51 ml/min [facility] Free T3on 03-30-2024 Free T3 [Mass/Vol] 8.1 pg/mL High 2.18-3.98 [facility] Comment on above: Order Comment: 1 Y Performed By: #### L 500.2500, L506.0400, L501.90685, L501.9520, L501.5425, L300.8000, L100.0500 #### [facility] [address] [place], [address] Free U9Pfermgt By: Bijan grajeda on 03-30-2024 Free Triiodothyronine (T3) pg/dL 8.1 pg/mL High 2.18-3.98 [facility] Glomerular filtration rate ( GFR) estimationOrdered By: Bijan De La Paz on 03-30-2024 Estimated GFR (MDRD) Non-Af Amer 112 mL/min >60 [facility] Comment on above: Non- GFR Calc Glucose measurementOrdered B y: Bijan De La Paz on 03-30-2024 Glucose [Mass/Vol] 120 mg/dL High 74-106 [facility] Comment on above: Fasting Glucose resu lt from 100 to 125 mg/dL suggests IMPAIRED HOMEOSTASIS per A.D.A. criteria. Hematocrit Auto (Bld) [Volum e fraction]Ordered By: Bijan De La Paz on 03-30-2024 Hematocrit (Bld) [Volume fraction] 40.7 % 37-47 [facility] Hemoglobin measurementOrdere d By: Bijan De La Paz on 03-30-2024 Hemoglobin (Bld) [Mass/Vol] 13.5 g/dL 12.0-15.0 [facility] L501.4020on 03-30-2024 TROPONIN-I HS 6 pg/mL Normal 3.0-54.0 [facility] Comment on above: Result Comment: Yohan crawford Note: New Test Units and Gender Specific Reference Ranges. For more information see Policy Stat Procedure [place] High Sensitivity Troponin (TNIH) and attachments. Performed By: #### L 501.4020 #### [facility] [address] [place], [address] L501.5425on 03-30-2024 TROPONIN-I HS 5 pg/mL Normal 3.0-54.0 [facility] Comment on above: Order Comment: 1 Y Result Comment: Yohan crawford Note: New Test Units and Gender Specific Reference Ranges. For more information see Policy Stat Procedure [place] High Sensitivity Troponin (TNIH) and attachments. Performed By: #### L 500.2500, L506.0400, L501.11251, L501.9520, L501.5425, L300.8000, L100.0500 #### [facility] [address] [place], [address] MCV (mean corpuscular volume ) determinationOrdered By: Bijan De La Paz on 03-30-2024 MCV (RBC) [Entitic vol] 89.5 fL 81-99 [facility] Mean corpuscular hemoglobin (MCH) determinationOrdered By: Bijan De La Paz on 03-30-2024 MCH (RBC) [Entitic mass] 29.7 pg 27.0-32.0 [facility] Mean corpuscular hemoglobin concentration (MCHC) determinationOrdered By: Bijan De La Paz on 03-30-2024 MCHC (RBC) [Mass/Vol] 33.2 g/dL 32-36 [facility] Mean platelet volume determi nationOrdered By: Bijan De La Paz on 03-30-2024 Platelet mean volume (Bld) [Entitic vol] 8.4 fL 6.2-12.0 [facility] Platelet countOrdered By: viviane De La Paz on 03-30-2024 Platelets (Bld) [#/Vol] 389 10*3/uL 150-450 [facility] Potassium measurementOrdered By: Bijan De La Paz on 03-30-2024 Potassium [Moles/Vol] 3.9 mmol/L 3.5-5.1 [facility] Comment on above: Moderate Hemolysis, Result may be falsely increased. RBC Auto (Bld) [#/Vol]Ordere d By: Bijan De La Paz on 03-30-2024 RBC (Bld) [#/Vol] 4.55 10*6/uL 4.2-5.4 [facility] Serum anion gap measurementO rdered By: Bijan De La Paz on 03-30-2024 Anion gap [Moles/Vol] 9 mmol/L 5-15 [facility] Serum or plasma calcium edith urement (mass/volume)Ordered By: Bijan De La Paz on 03-30-2024 Calcium [Mass/Vol] 9.2 mg/dL 8.5-10.1 [facility] Serum or plasma creatinine m easurement (mass/volume)Ordered By: Bijan De La Paz on 03-30-2024 Creatinine [Mass/Vol] 0.60 mg/dL 0.55-1.02 [facility] Comment on above: The validity of the calculated GFR & GFRAA in patients over 70 years has not been determined. Clinical correlation is essential. Serum or plasma urea nitroge n measurement (mass/volume)Ordered By: Bijan De La Paz on 03-30-2024 Urea nitrogen [Mass/Vol] 14 mg/dL 7-18 [facility] Sodium levelOrdered By: Quin De La Paz on 03-30-2024 Sodium [Moles/Vol] 138 mmol/L 136-145 [facility] T4 Free Directon 03-30-2024 T4 FREE DIRECT 2.26 ng/dL High 0.76-1.46 [facility] Comment on above: Order Comment: 1Y Performed By: #### L 501.66285, L501.9520, L506.0400 #### [facility] [address] [place], [place], [address] TSH QnOrdered By: Lux on 03-30-2024 Thyroid Stimulating Hormone (TSH) < 0.005 uIU/mL Low 0.358-3.740 [facility] Thyroid Stim Hormone (TSH)on 03-30-2024 TSH Qn m[IU]/L Low 0.358-3.740 [facility] Comment on above: Order Comment: 1 Y Performed By: #### L 500.2500, L506.0400, L501.91842, L501.9520, L501.5425, L300.8000, L100.0500 #### [facility] [place], [address] Troponin IOrdered By: Bijan De La Paz on 03-30-2024 Troponin I High Sensitivity 6 pg/mL 3.0-54.0 [facility] Comment on above: Please Note: New Nicole t Units and Gender Specific Reference Ranges. For more information see Policy Stat Procedure [place] High Sensitivity Troponin (TNIH) and attachments. White blood cell (WBC) count Ordered By: Bijan De La Paz on 03-30-2024 WBC (Bld) [#/Vol] 8.6 10*3/uL 4.4-11.0 [facility] MA MAMMOGRAM SCREENING BILAT ERAL W/TOMOon 08-24-2023 MA MAMMOGRAM SCREENING BILATERAL W/JERAMY ORIGINAL FROM: [facility] [address] [address] PROCEDURE FOR: JAVAD OLEARY [address] [place] [address] Home: PID#: [id number] Exam#: [id number] : 1975 Age: 47 TO: STEVIE ELKINS MD [address] [facility] [address] [address] [place] [id number] Fax: NO FAX EXAMINATION: SCREENING DIGITAL BILATERAL [...] screening with annual mammograms is recommended. Rashmi Morel risk calculations, generated with the history provided, [...] addition to annual mammographic screening per the [employer]. 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 Pathology Reports Accession: Collected Date/Time: Received Date/Time: Pathologist: [id number] 08/08/2023 09:31 EDT 08/08/2023 18:00 EDT Care Navigator Cytology Report SPECIMEN: Specimen Description: Liquid Prep [...] and evaluated with the assistance of the SymwavePrep Test Imaging System. Pathology Reports Accession: Collected Date/Time: Received Date/Time: Pathologist: [id number] 08/08/2023 09:31 EDT 08/08/2023 18:00 EDT Electronically Signed by Pathology report verified by [facility] Screened by: KK Electronically signed by Delia JENKINS (ASCP) Sign-Out Date: 08/14/2023 14:59 Performing Lab: [facility], [address] [place] [address] Pathology Dept Disclaimer The Pap test is a screening test for cervical cancer. As evidenced by published data, it is subject to both inherent false negative and false positive results. Your patient's results should be interpreted in context with pertinent clinical history including gynecological examination. Normal [facility] [place] HPVon 08-10-2023 HPV Interp Normal See Interp HPVN [facility] Comment on above: Order Comment: Order placed by AP_HPV_ORDER rule from [id number] Result Comment: High Risk HPV Typing: NEGATIVE [...] HPVN Performed By: #### H PV #### [place] [address] HPV Source Cervix Normal [facility] [place] Comment on above: Order Comment: Order placed by AP_HPV_ORDER rule from [id number] Performed By: #### H PV #### [place] [address] LABORATORYOrdered By: Hugo Crow on 08-08-2023 HPV [...] Date Time Vital Sign Value Performing Clinician Carlai lity 12-31-2024 08:50-0400 Body height 160.[address] Tammy Mejia MD Work Phone: [facility] 12-31-2024 08:50-0400 Body mass index (BMI) [Ratio] 32.8 kg/m2 Dr. Tammy Mejia MD Work Phone: [facility] 12-31-2024 08:50-0400 Body weight 83.[address] Tammy Mejia MD Work Phone: 2([phone])031-550432 [place] [address] 12-31-2024 08:50-0400 Diastolic blood pressure 79 mm[Hg] Dr. Tammy Mejia MD Work Phone: 8(898)564-697732 [place] [address] 12-31-2024 08:50-0400 Heart rate 84 /min Dr. Tammy Mejia MD Work Phone: 9(184)742-973132 [place] [address] 12-31-2024 08:50-0400 SaO2% (BldA) [Mass fraction] 98 % Dr. Tammy Mejia MD Work Phone: 0(942)339-931832 [place] [address] 12-31-2024 08:50-0400 Systolic blood pressure 141 mm[Hg] Dr. Tammy Mejia MD Work Phone: 3(161)587-132132 [place] [address] 07-11-2024 09:51-0400 Body height 160.[address] Tammy Mejia MD Work Phone: 5(393)265-147232 [place] [address] 07-11-2024 09:51-0400 Body mass index (BMI) [Ratio] 32.8 kg/m2 Dr. Tammy Mejia MD Work Phone: 6(575)811-976932 [place] [address] 07-11-2024 09:51-0400 Body weight 83.[address] Tammy Mejia MD Work Phone: 6(601)011-371032 [place] [address] 07-11-2024 09:51-0400 Diastolic blood pressure 83 mm[Hg] Dr. Tammy Mejia MD Work Phone: 8(247)982-327432 [place] [address] 07-11-2024 09:51-0400 Heart rate 78 /min Dr. Tammy Mejia MD Work Phone: 9(556)404-508832 [place] [address] 07-11-2024 09:51-0400 SaO2% (BldA) [Mass fraction] 96 % Dr. Tammy Mejia MD Work Phone: 7(083)627-981732 [place] [address] 07-11-2024 09:51-0400 Systolic blood pressure 125 mm[Hg] Dr. Tammy Mejia MD Work Phone: 1(850)283-341632 [place] [address] 04-19-2024 13:23-0500 Body mass index (BMI) [Ratio] 30.8 kg/m2 Dr. Tammy Mejia MD Work Phone: [facility] 04-19-2024 13:23-0500 Body weight 78.[address] Tammy Mejia MD Work Phone: [facility] 04-19-2024 13:23-0500 Diastolic blood pressure 66 mm[Hg] Dr. Tammy Mejia MD Work Phone: 8(532)215-238857 [place] [address] 04-19-2024 13:23-0500 Heart rate 116 /min Dr. Tammy Mejia MD Work Phone: 3(936)253-767657 [place] [address] 04-19-2024 13:23-0500 SaO2% (BldA) [Mass fraction] 97 % Dr. Tammy Mejia MD Work Phone: 7(684)556-494557 [place] [address] 04-19-2024 13:23-0500 Systolic blood pressure 144 mm[Hg] Dr. Tammy Mejia MD Work Phone: 8(941)562-826357 [place] [address] 03-30-2024 05:51-0500 Body temperature 97.9 [degF] Dr. Tammy Mejia MD Work Phone: 4(763)576-245257 [place] [address] 03-30-2024 05:51-0500 Diastolic blood pressure 52 mm[Hg] Dr. Tammy Mejia MD Work Phone: 2(476)659-749357 [place] [address] 03-30-2024 05:51-0500 Heart rate 87 /min Dr. Tammy Mejia MD Work Phone: 7(223)330-976457 [place] [address] 03-30-2024 05:51-0500 Respiratory rate 20 /min Dr. Tammy Mejia MD Work Phone: 9(368)350-059057 [place] [address] 03-30-2024 05:51-0500 SaO2% (BldA) [Mass fraction] 99 % Dr. Tammy Mejia MD Work Phone: [facility] 03-30-2024 05:51-0500 Systolic blood pressure 130 mm[Hg] Dr. Tammy Mejia MD Work Phone: 2(215)555-045357 [place] [address] 03-30-2024 02:24-0500 Body mass index (BMI) [Ratio] 29.4 kg/m2 Dr. Tammy Mejia MD Work Phone: [facility] 03-30-2024 02:24-0500 Body weight 75.[address] Tammy Mejia MD Work Phone: [facility] Encounters Encounter Date Encounter Type Care Provider Facility Start: [facility] Start: 12-31-2024 End: 12-31-[address] Cesar Moss MD -[facility] Work Phone: Start: 12-31-2024 End: 12-31-[address] Tammy Mejia MD Work Phone: -[facility] Start: 12-26-2024 End: 12-26-[address] Tammy Mejia MD Work Phone: -[facility] [place] Start: 12-26-2024 End: 12-26-[address] Cesar Moss MD -[facility] Work Phone: Start: 12-26-2024 End: 12-26-2024 ambulatory Tammy Mejia Facility:[facility] Start: 10-17-2024 End: 10-17-[address] Tammy Mejia MD Work Phone: [facility] Work Phone: Start: 10-17-2024 End: 10-17-[address] Cesar Moss MD -[facility] Start: 10-17-2024 End: 10-17-2024 ambulatory Tammy Mejia Facility:[facility] Start: 10-02-2024 End: 10-02-2024 ambulatory MABEL HALL DO Facility:[facility] Start: 10-02-2024 End: 10-02-2024 Minor Procedure MABEL HALL DO [facility] Start: 09-05-2024 End: 09-05-[address] TAMMY MEJIA MD Facility:[facility] Start: 09-05-2024 End: 09-05-2024 Patient encounter procedure STEVIE ELKINS MD [facility] Start: 08-22-2024 End: 08-22-[address] Cesar Moss MD -[facility] Start: 08-22-2024 End: 08-22-2024 ambulatory Tammy Mejia Facility:[facility] Start: 07-11-2024 End: 07-11-[address] Cesar Moss MD -[facility] Work Phone: Start: 07-11-2024 End: 07-11-2024 ambulatory Cesar Moss [place] Start: 07-09-2024 End: 07-09-[address] Tammy Mejia MD Work Phone: [facility] Work Phone: Start: 07-09-2024 End: 07-09-[address] Cesar Moss MD -Labor[facility], [facility] Start: 07-09-2024 End: 07-09-2024 ambulatory Cesar Moss Facility:[facility] Start: 05-30-2024 End: 05-30-[address] Cesar Moss MD -Labor[facility], [facility] Start: 05-30-2024 End: 05-30-2024 ambulatory Tammy Mejia Facility:[facility] Start: 05-09-2024 End: 05-09-[address] Tammy Mejia MD -Laboratory, [facility] Start: 05-09-2024 End: 05-09-2024 ambulatory Tammy Mejia Facility:[facility] Start: 04-19-2024 End: 04-19-[address] Cesar Moss MD -[facility] Work Phone: Start: 04-19-2024 End: 04-19-2024 ambulatory Tammy Mejia [place] Start: 04-16-2024 End: 04-16-[address] Tammy Mejia MD -Nuclear Medicine, [facility] Work Phone: Start: 04-16-2024 End: 04-16-2024 ambulatory Tammy Mejia Facility:[facility] Start: 04-09-2024 End: 04-09-[address] Tammy Mejia MD -Ultrasound, [facility] Work Phone: Start: 04-09-2024 End: 04-09-2024 ambulatory Tammy Mejia Facility:[facility] Start: 03-30-2024 End: 03-30-2024 Emergency department patient visit Dr. Bijan De La Paz DO -Emergency Department Work Phone: Start: 08-22-2023 End: 08-23-[address] TAMMY MEJIA MD Facility:[facility] Start: 08-22-2023 End: 08-22-2023 Patient encounter procedure STEVIE ELKINS MD [facility] Start: 08-08-2023 End: 08-13-2023 ambulatory STEVIE ELKINS MD Facility:[facility] Start: 08-08-2023 End: 08-13-2023 Encounter for gynecological examination (general) (routine) without abnormal findings STEVIE ELKINS MD Facility:[facility] Start: 08-08-2023 End: 08-12-2023 Outreach Lab STEVIE ELKINS MD [facility] Procedures Date Procedure Procedure Detail Performing Clinician Start: 04-16-[address] Tammy Mejia MD Work Phone: Start: 04-09-2024 US scan of thyroid Dr. Tammy Mejia MD Work Phone: Start: 03-30-2024 Plain chest X-ray Dr. Wayne Mejia MD Work Phone: Cholecystectomy STEVIE ELKINS MD Ligation of fallopian tube Wayne ELKINS MD Plan of Treatment Date Care Activity Detail Author Patient Education ED Hyperthyroidism [facility] Work Phone: Patient referral [facility] Work Phone: T4 free measurement [facility] T4 free measurement [facility] Thyroid stimulating hormone measurement [facility] Thyroid stimulating hormone measurement [facility] Triiodothyronine, fr ee measurement [facility] Triiodothyronine, fr ee measurement [facility] Payers Date Payer Category Payer Private Health Insurance [id number] 2024 Unknown [id number] 2024 Self-pay 2023 Unknown [id number] 2023 Unknown [id number] 1975 Unknown [id number] 2.16.8 40.1.540545.3.579.2.627 1975 Unknown [id number] 2.16.8 40.1.336617.3.579.2.627 1975 Unknown [id number] 2.16. 840.1.006775.3.579.2.627 1975 Unknown [id number] 2.16.8 40.1.524901.3.579.2.627 Unknown [id number] 2.16.8 40.1.288104.3.579.2.462 Unknown [id number] 2.16.8 40.1.579971.3.579.2.462 Unknown [id number] 2.16.8 40.1.383833.3.579.2.462 Unknown [id number] 2.16.8 40.1.035419.3.579.2.462 Unknown [id number] 2.16.8 40.1.907416.3.579.2.462 Unknown [id number] 2.16.8 40.1.149631.3.579.2.462 Unknown [id number] 2.16.8 40.1.842452.3.579.2.462 Unknown [id number] 2.16.8 40.1.100448.3.579.2.462 Unknown [id number] 2.16.8 40.1.232785.3.579.2.462 Unknown [id number] 2.16.8 40.1.805080.3.579.2.462 Unknown [id number] 2.16.8 40.1.368144.3.579.2.462 Unknown [id number] 2.16.8 40.1.709565.3.579.2.462 Unknown [id number] 2.16.8 40.1.654026.3.579.2.462 Social History Date Type Detail Facility Start: 08-08-2023 End: 04-19-2024 Tobacco smoking status Never smoked tobacco (finding) [facility] Start: 1975 Sex Assigned At Female A [facility] Start: 06-21-2018 End: 07-17-2024 Sex Female (finding) 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 [address] [place], [place] [id number] OFFICE VISIT Date of Service: 12/31/24 MR#: [id number] Acct: [id number] Name: JAVAD OLEARY Rep #: [id number] : 1975 Provider: Dr. Cesar Moss MD Age/Sex: 49/F [place] [facility]: Signed Intake Vital Signs 07/11/24 09:51 12/31/24 08:50 Height 5 ft 3 in 5 ft 3 in Weight: 185 lb 185 lb BMI 32.8 32.8 BP 125/83 H 141/79 H Blood Pressure Location Rt brachial Lt brachial Position Sitting Sitting Pulse 78 84 Pulse Source Monitor Monitor Pulse Oximetry (%) 96 98 Oxygen Delivery Method room air room air Intake Visit Reasons: 6 M FU Chief Complaint: Thyroid Operating Systems Specialist Required: No Accompanied by: Self Is patient in pain?: No Allergies naproxen Allergy (Verified 12/31/24 08:49) Swelling Medications ?Medication ?Instructions ?Recorded ?Confirmed ?Type cetirizine 10 mg tablet (24Hour 10 mg PO DAILY PRN all ergy symptoms 03/30/24 12/31/24 History Allergy) methimazole 10 mg tablet 10 mg PO .qd, Mon & Fri 05/02 t #90 12/31/24 12/31/24 Rx tabs PFSH Medical History Thyrotoxicosis due [...] Complaint: Thyroid Details: JAVAD OLEARY, is a 49 F who presents to the office today for follow up. 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 She is taking 10 mg of methimazole, she is tolerating it well. TSH is 4.4 ROS Const Constitutional: No fatigue, weakness, weight change or change in appetite Eyes Eyes: No change in vision ENT ENT: No hearing loss, nasal congestion or difficulty swallowing Cardio Cardiology: No chest pain at rest, chest pain with exertion or shortness of breath Musc Musculoskeletal: No numbness Neuro Neurology: No weakness, memory loss or numbness Psych Psychiatric: No change in appetite, No memory loss and No Thoughts of harming yourself/Others Resp Respiratory: No cough or chest congestion Gastro GI: No difficulty swallowing Genitourinary-Female: No burning urination Skin [...] normal visual inspection Neck mass: No Thyroid: thyroid normal Carotids: no bruits Lymphatic: no lymphadenopathy noted Chest Chest palpation & inspection: normal inspection of the chest Resp Effort & Inspection: normal respiratory effort, able to speak in complete sentences, symmetric chest movement, no audible wheezes and no cough Auscultation: Bilateral: Clear to Auscultation Cardio Rate: regular rate Rhythm: regular rhythm Pulses: posterior tibial pulses present GI Inspection: normal to inspection Auscultation: normal bowel sounds Palpation: soft and no hepatosplenomegaly Skin General: no rashes or lesions noted [...] to Graves' disease: Status: Chronic Plan: Reduce dose twice per week. I counseled her regarding course of thyroid disease and symptoms to watch for. Check labs in 8 weeks. I have spent [23] minutes today reviewing labs, records and history. Time includes coordinating care, interpretation of tests, discussion with patient's other health care providers via telephone. This also includes time I spent with the patient for exam, treatment plan and education as well as documenting clinical information. 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 Tammy Mejia MD ~ [facility]09-02-2025 Progress note Author Cesar Moss [facility] Note Date/Time December 31, 2024 9:16am [facility] [address] [place] [address]. [address] [place] [address] OFFICE VISIT Date of Service: 12/31/24 MR#: [id number] Acct: [id number] Name: JAVAD OLEARY Rep #: [id number] : 1975 Provider: Dr. Cesar Moss MD Age/Sex: 49/F [place] [facility] [place]: Signed Intake Vital Signs 07/11/24 09:51 12/31/24 08:50 Height 5 ft 3 in 5 ft 3 in Weight: 185 lb 185 lb BMI 32.8 32.8 BP 125/83 H 141/79 H Blood Pressure Location Rt brachial Lt brachial Position Sitting Sitting Pulse 78 84 Pulse Source Monitor Monitor Pulse Oximetry (%) 96 98 Oxygen Delivery Method room air room air Intake Visit Reasons: 6 M FU Chief Complaint: Thyroid Operating Systems Specialist Required: No Accompanied by: Self Is patient in pain?: No Allergies naproxen Allergy (Verified 12/31/24 08:49) Swelling Medications ?Medication ?Instructions ?Recorded ?Confirmed ?Type cetirizine 10 mg tablet (24Hour 10 mg PO DAILY PRN all ergy symptoms 03/30/24 12/31/24 History Allergy) methimazole 10 mg tablet 10 mg PO .qd, Mon & 05/02 t #90 12/31/24 12/31/24 Rx tabs PFSH Medical History Thyrotoxicosis due [...] Complaint: Thyroid Details: JAVAD OLEARY, is a 49 F who presents to the office today for follow up. 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 She is taking 10 mg of methimazole, she is tolerating it well. TSH is 4.4 ROS Const Constitutional: No fatigue, weakness, weight change or change in appetite Eyes Eyes: No change in vision ENT ENT: No hearing loss, nasal congestion or difficulty swallowing Cardio Cardiology: No chest pain at rest, chest pain with exertion or shortness of breath Musc Musculoskeletal: No numbness Neuro Neurology: No weakness, memory loss or numbness Psych Psychiatric: No change in appetite, No memory loss and No Thoughts of harming yourself/Others Resp Respiratory: No cough or chest congestion Gastro GI: No difficulty swallowing Genitourinary-Female: No burning urination Skin [...] normal visual inspection Neck mass: No Thyroid: thyroid normal Carotids: no bruits Lymphatic: no lymphadenopathy noted Chest Chest palpation & inspection: normal inspection of the chest Resp Effort & Inspection: normal respiratory effort, able to speak in complete sentences, symmetric chest movement, no audible wheezes and no cough Auscultation: Bilateral: Clear to Auscultation Cardio Rate: regular rate Rhythm: regular rhythm Pulses: posterior tibial pulses present GI Inspection: normal to inspection Auscultation: normal bowel sounds Palpation: soft and no hepatosplenomegaly Skin General: no rashes or lesions noted [...] to Graves' disease: Status: Chronic Plan: Reduce dose twice per week. I counseled her regarding course of thyroid disease and symptoms to watch for. Check labs in 8 weeks. I have spent [23] minutes today reviewing labs, records and history. Time includes coordinating care, interpretation of tests, discussion with patient's other health care providers via telephone. This also includes time I spent with the patient for exam, treatment plan and education as well as documenting clinical information. 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 Tammy Mejia MD ~ [facility] Work Phone: 1(356) 655-601306-04-2025 Evaluation + Plan noteExtracted from: Title:Clinical Document Author:MABEL HALL DO D ate:10/02/24 CRESCENT ADMISSION HISTORY AN D PHYSICIAL CHIEF COMPLAINT: Colorectal cancer screening HISTORY OF PRESENT ILLNESS: Colorectal cancer screening REVIEW OF SYSTEMS: Constitutional: denies weight loss Cardiovascular:denies chest pain, palpitations Respiratory:denies shortness of breath Gastrointestinal:no abd pain Musculoskeletal: no arthralgias Skin: no rashes ACTIVE PROBLEMS: (1) Graves disease ([id number]) MEDICATIONS: Active Inpt Meds: None Active PRN Meds: None One Time Meds: None Active IV Meds: Sodium Chloride 0.9% intravenous solution 1,000 mL (NS 1,000 mL) Start: 10/02/24 6:43:00 EDT, Rate: 20 mL/hr, 10/02/24 6:43:00 EDT ALLERGIES: (1) naproxen FAMILY HISTORY: SOCIAL HISTORY: PHYSICAL EXAM: VITALS: JmeymnKsxhILVcnkyTGImG0WEO3AxmgYo(kg) 10/02 06:5136.5--1422274EQ92/04 77.3 24 Hr Tmax: 36.5 at 10/02 [...] PLAN: Colonoscopy as discussed in the office [facility] 06-04-2025 Hospital Discharge instructions Patient Education 10/02/2024 [...] before eating solid foods. General instructions Take ibmx-fsn-wofnqcz and prescription medicines only as told by [...] 08/07/2016 Document Revised: 07/16/2018 Document Reviewed: 08/07/2016 [employer] Patient Education 2020 [employer]. 10/02/2024 07:50:01 Colonoscopy, Adult, Care After Colonoscopy, [...] a slower pace than normal. ?Eat soft, lgzb-gw-cqmrwq foods. Take mmbt-htn-wwoblwx or prescription medicines only as told by [...] 11/29/2004 Document Revised: 02/07/2018 Document Reviewed: 06/28/2016 [employer] Patient Education 2020 [employer]. Follow Up Care 09/11/2024 10:41:47 With:MABEL HALL DO, Clinical Gastroenterology Address: [address] [place] [address] [place] [address]- [phone] When:Within 5 Year(s) With:TAMMY MEJIA MD Address: [address] [place], [place] [id number]- When: Unknown [facility] 06-04-2025 Note Discharge Instructions Thank you for allowing [facility] to assist you with your healthcare needs. The following is importantdischarge information regarding your hospital visit. Your Care Team TAMMY MEJIA MD What to do next Instructions From Your Doctor Repeat colonoscopy 5 years Follow Up Appointments Follow Up with MABEL HALL DO Clinical Gastroenterology When:In 5 years Where:[address] [place] [address] [place] [phone] Follow Up with TAMMY MEJIA MD Where:[address] [place] [address]- The Following Activity and Diet Have Been [...] as provided by your GI provider at [facility]. Please take this list to your next [...] before eating solid foods. General instructions Take obgq-mqf-ecvdlxg and prescription medicines only as told by [...] 08/07/2016 Document Revised: 07/16/2018 Document Reviewed: 08/07/2016 [employer] Patient Education 2020 [employer] Colonoscopy, Adult, Care After This sheet gives [...] slower pace than normal. ? Eat soft, rcbz-gc-pymzwc foods. Take fyqe-apb-upjjxma or prescription medicines only as told by [...] 11/29/2004 Document Revised: 02/07/2018 Document Reviewed: 06/28/2016 [employer] Patient Education 2020 [employer] Additional Information VACCINATE! IT SAVES LIVES! Members of the community who have not yet received the COVID-19 vaccine and would like to receive it can visit one of [facility] vaccine clinics. There are many vaccine clinic locations within the [facility]. For locations and available times, please visit [email or web address] It is important to note that some COVID mobile vaccine clinics are held outdoors and may be canceled in rainy or stormy conditions. To learn more about pediatric vaccinations (ages 5-11), we invite you to visit the [facility] webpage. [email or web address]/[email or web address] [email or web address] learn more about the COVID-19 vaccine, we invite you to visit the CDC website for a list of frequently asked questions.https://www.cdc.gov/coronavirus/2019-ncov/vaccines/faq.html [facility] Patient Portal Access Instructions: Stay connected with your healthcare team and access your personal medical information anytime with the [facility] Patient Portal. Please follow the directions below to create your [facility] account: 1.Access the email account you provided upon registration to the hospital/physician office.2.Look for an invitation email from [facility].3.Open the email and access the invitation link: AcceptInvitation to [facility].4.Fill in the required rios to create your account. To access your account, visit [email or web address]. Click the blue button labeled Access Patient Portal and then log in with the username and password that you created in the steps above. You will be able to view your test results, lab results, a summary of your visits, upcoming appointments and more. There is also a convenient messaging option where you can send secure messages to your p [email or web address]. In addition, you will have the ability to download any documents or summaries to your computer and/or send the information securely to a physician. Remember that your healthcare information is confidential, so carefully consider who you will allowto register on the [facility] Patient Portal for access to your information. You can also access the [facility] Patient Portal on the [employer] Anywhere scarlett. Simply click on Patient Portal and then log into your account. If you would like to receive a full copy of your medical records, please contact the [facility] Medical Records Department by calling [phone], Monday through Monday between 8 a.m. and [...] Call your local pharmacy or go to http://[email or web address]/[email or web address] to find one close to you.3.Make use of household items: Use cat litter or old coffee grounds to dispose medications if other options arenot available. Mix your drugs with these household products, seal them in an airtight container andthrow it into the garbage. Call [facility]: [phone] to be sure your drugs can be [...] aware that I should contact my doctor. Patient/Document Imaging Specialist Signature: Date/Time: Relationship to Patient: Witness Name/Signature: Date/Time: [facility]06-04-2025 Note Indication for Surgery Colorectal cancer screening [...] MABEL HALL DO on 10/02/2024 07:47 AM [facility]06-04-2025 Anesthesiology Consult note Patient: JAVAD OLEARY Age: 48 years Sex: Female : 1975 Associated Diagnoses: None Author: KESHAV LI Preoperative Information Time of last food or [...] as provided by your GI provider at [facility]., 1 EA, 0 Refill(s) Documented Medications Documented [...] valve disorder Mother Procedure history: Tubal ligation ([id number]). Cholecystectomy ([id number]). Social History: Social & Psychosocial Habits Alcohol 10/02/2024 Use: Current Tobacco 10/02/2024 Tobacco Use: Never (less than 100 in l Physical Examination Vital Signs 10/02/2024 6:51 EDT Temperature Temporal Artery 36.5 DegC Apical Heart Rate 128 bpm >HHI Respiratory Rate 18 br/min Systolic Blood Pressure Non-Invasive 133 mmHg Diastolic Blood Pressure Non-Invasive 83 mmHg Vital Signs (last 24 hrs) Last Charted Temp Oislxwpo75.5 DegC (OCT 02 06:51) Heart Rate ApicalC 128bpm (OCT 02 06:51) HVV145 mmHg (OCT 02 06:51) DBP83 mmHg (OCT 02 06:51) BMI30.2 (OCT 02 06:55) Measurements from flowsheet : Measurements 10/02/2024 6:55 EDT Height 160.0 cm Admission Weight 77.3 kg Weight Method Stated Oxford Body Weight 52.38 kg BSA Admission 1.81 [...] Surgeon SN - CAt - Role Performed Scarf And Anneal Operator 1 SN - CAt - Role Performed Scarf And Anneal Operator 2 SN - CAt - Role Performed Scrub 1 SN - CAt - Role Performed CASE ASSEMBLER 10/02/2024 7:03 EDT Sodium Chloride 0.9% Begin [...] Number of Attempts: 1 10/02/2024 6:59 EDT Cummings History and Physical 10/02/2024 6:55 EDT Designated Person #1 We May Share ARNOLD OLEARY [phone] Designated Person #1 Relationship Spouse Privacy Restrictions Requested None Height 160.0 cm Admission Weight 77.3 kg Weight Method Stated Oxford Body Weight 52.38 kg BSA Admission 1.81 [...] Teaching Method Printed materials Preferred Spoken Language Singaporean Preferred Written Language Singaporean Patient's Current Physicians DR. HALL Discharge To, [...] 99 % Abdomen Description Non-distended Skin Description [place] Skin Temperature Warm Skin Integrity Intact Skin [...] Allergies Yes Anesthesia Extension Set Applied Yes Salon Leader On Yes Colon Prep Results Good Consent [...] Intake 09/30/2024 19:00 . Assessment and Plan [place] [employer] of Anesthesiologists (ASA) physical status classification: Class II. Anesthetic Preoperative Plan Anesthetic technique: MAC. Postoperative pain management: Per surgeon. Informed consent: signed by patient. Digitally Signed by KESHAV LI on 10/02/2024 07:31 AM [facility]06-04-2025 Note CRESCENT ADMISSION HISTORY AND PHYSICIAL CHIEF COMPLAINT: Colorectal cancer screening HISTORY OF PRESENT ILLNESS: Colorectal cancer screening REVIEW OF SYSTEMS: Constitutional: denies weight loss Cardiovascular:denies chest pain, palpitations Respiratory:denies shortness of breath Gastrointestinal:no abd pain Musculoskeletal: no arthralgias Skin: no rashes ACTIVE PROBLEMS: (1) Graves disease ([id number]) MEDICATIONS: Active Inpt Meds: None Active PRN Meds: None One Time Meds: None Active IV Meds: Sodium Chloride 0.9% intravenous solution 1,000 mL (NS 1,000 mL) Start: 10/02/24 6:43:00 EDT, Rate:20 mL/hr, 10/02/24 6:43:00 EDT ALLERGIES: (1) naproxen FAMILY HISTORY: SOCIAL HISTORY: PHYSICAL EXAM: VITALS: CyoyssQbitRQYddurOFBaV6EZT1TuzuJi(kg) 10/02 06:5136.5--9262475HF02/04 77.3 24 Hr Tmax: 36.5 at 10/02 [...] MABEL HALL DO on 10/02/2024 06:59 AM [facility]03-13-2025 Evaluation note* Diagnosis Onset Date Resolution Status Admit Date Thyrotoxicosis due to Graves ' disease chronic July 11, 2024 9:39am [facility] Work Phone: 1(165) 626-131712-20-2024 Evaluation note* Diagnosis Onset Date Resolution Status Admit Date Thyrotoxicosis due to Graves ' disease chronic April 19 1:18pm Thyrotoxicosis due to Graves ' disease chronic July 11, 2024 9:39am [facility] Work Phone: Evaluation + Plan note Future Appointments Appointment Date:08/22/2023 09:45:00 AM Scheduled Provider: [facility] Appointment Type:MA Mammogram Screening Bilateral w/ Jeramy Future Scheduled Tests Radiology* MA Mammo Screening Bilateral w/ Jeramy 08/22/23 [facility] Evaluation note* Diagnosis Onset Date Resolution Status Admit Date Thyrotoxicosis due to Graves ' disease chronic December 31 8:48am [facility] Work Phone: Hospital course Narrative No data available for this section [facility] Hospital Discharge instructions No data available for this section [facility] Progress note No data available for this section [facility] Reason for referral (narrative)No reason for referral [facility] Work Phone: Summary Purpose Family History Relationship Condition Age at Onset Recorded Date/T ron mother History of mitral valve repair Unknown grandmother Arthritis Unknown No Family History Records Found Advance Directives No Advanced Directives Records Found Advance Directive Response Recorded Date/ Time Living Will No March 30 024 3:27am Do you have a Healthcare Power of Applications System Analyst? No March 30, 2024 3:27am Chief Complaint [...] 2023 1:18pm Thyrotoxicosis due to Graves' disease [facility] 2024 9:39am Chief Complaint Admit Date 3 M FU July 11, 2024 9:3 9am Reason for Visit Admit Date Thyrotoxicosis due to Graves' disease [facility] 2024 9:39am Chief Complaint Admit Date 6 M FU December 31, 2024 8:48am Reason for Visit Admit Date Thyrotoxicosis due to Graves' disease Se pt2024 8:48am Additional Source Comments Patient Care team informatio n (unrecognized section and content) Team Status: Active Member Role Status Dates [...] July 11, 2024 End: July 11, 2024 Team Status: Inactive Member Role Status Dates Dr. Tammy Mejia MD Primary Care Provider Active Start: August 22, 2024 End: August 22, 2024 Dr. Cesar Moss MD Attending Provider Active Sta rt: August 22, 2024 End: August 22, 2024 Dr. Cesar Moss MD Referring Provider Active Sta rt: August 22, 2024 End: August 22, 2024 Team Status: Inactive Member Role Status Dates Dr. Tammy Mejia MD Primary Care Provider Active Start: October 17, 2024 End: October 17, 2024 Dr. Cesar Moss MD Attending Provider Active Sta rt: October 17, 2024 End: October 17, 2024 Dr. Cesar Moss MD Referring Provider Active Sta rt: October 17, 2024 End: October 17, 2024 Team Status: Active Member Role/Relationship Status Dates Dr. Tammy Mejia MD Family Provider Active Dr. Tammy Mejia MD Primary Care Provider Active Team Status: Inactive Member Role/Relationship Status Dates Dr. Tammy Mejia MD Primary Care Provider Active Start: October 17, 2024 End: October 17, 2024 Dr. Cesar Moss MD Attending Provider Active Sta rt: October 17, 2024 End: October 17, 2024 Dr. Cesar Moss MD Referring Provider Active Sta rt: October 17, 2024 End: October 17, 2024 Team Status: Active Member Role/Relationship Status Dates Dr. Tammy Mejia MD Primary Care Provider Active Start: December 26, 2024 Dr. Cesar Moss MD Attending Provider Active Sta rt: December 26, 2024 Dr. Cesar Moss MD Referring Provider Active Sta rt: December 26, 2024 Team Status: Inactive Member Role/Relationship Status Dates Dr. Tammy Mejia MD Primary Care Provider Active Start: December 31, 2024 End: December 31, 2024 Dr. Tammy Mejia MD Referring Provider Active Start: December 31, 2024 End: December 31, 2024 Dr. Cesar Moss MD Attending Provider Active Sta rt: December 31, 2024 End: December 31, 2024 Team Status: Inactive Member Role/Relationship Status Dates Dr. Tammy Mejia MD Primary Care Provider Active Start: December 26, 2024 End: December 26, 2024 Dr. Cesar Moss MD Attending Provider Active Sta rt: December 26, 2024 End: December 26, 2024 Dr. Cesar Moss MD Referring Provider Active Sta rt: December 26, 2024 End: December 26, 2024 INFORMATION SOURCE (unrecogn ized section and content) DATE CREATED AUTHOR 09/20/2023 [facility] ([place] DATE CREATED AUTHOR AUTHOR'S ORGANIZ ATION 12/05/2024 [facility] DATE CREATED AUTHOR AUTHOR'S ORGANIZ ATION 03/05/2025 [facility] Goals (unrecognized section and content) Goals may [...] BE BASED ON THE PRIMARY CLINICAL RECORDS. [facility]. provides no warranty or guarantee of the accuracy or completeness of information in this document.
== END | disposition home or self-care (01) ==
LOC: MTLAB 11:20
PROVIDERS: PCP Family Medicine; Referring Provider Nurse Practitioner Family; Visit Provider Nurse Practitioner Family
DX: E05.00 Thyrotoxicosis with diffuse goiter without thyrotoxic crisis or storm (principal)
CPT/HCPCS: 36415; 84439; 84443; 84481